=== PATIENT | female | born 1945 | race Caucasian/White ===

== ENCOUNTER 2022-02-18 10:39 | Outpatient (CLI) | payer MEDICARE, SELFPAY ==
--- NOTE | 2022-02-18 11:00 | CRLHL7_ITS ---
For Patients: As a result of the Century Cures Act, medical imaging exams and procedure reports are released immediately into your electronic medical record. You may view this report before your referring provider. If you have questions, please contact your health care provider. Indication: Asymmetry OF ABDOMINAL WALL, ?HERNIA Technique: Noncontrast CT abdomen and pelvis Please note that all CT scans at this facility use dose modulation, iterative reconstruction, and/or weight-based dosing when appropriate to reduce radiation dose to as low as reasonably achievable. Comparison: None Findings: Supraumbilical midline abdominal wall hernia is present containing fat measuring 2.7 cm. Tiny umbilical hernia containing fat measuring 4 millimeters. Right inguinal hernia containing fat measuring 2.3 cm. No bowel involvement. Bladder normal. No pelvic soft tissue mass. Uterus and adnexa appear normal. No bowel obstruction, free air, free fluid or abscess. Mild dependent atelectasis in both lung bases. Fatty infiltration liver. Gallbladder incompletely distended. Normal pancreas, adrenal glands, kidneys and ureters. A small cyst is present within the upper pole of the right kidney. Postoperative changes of fusion L3 through L5 with intact hardware. Impression: Supraumbilical midline abdominal wall hernia containing fat measuring 2.7 cm. Right inguinal hernia contains fat measuring 2.3 cm. Please note that all CT scans at this facility use dose modulation, iterative reconstruction, and/or weight-based dosing when appropriate to reduce radiation dose to as low as reasonably achievable. Dictated by Adi Krishnamurthy MD @ 02/18/2022 1:38:01 PM (Electronically Signed)
== END 2022-02-18 10:40 | disposition home or self-care (01) ==
LOC: CT 10:40
PROVIDERS: PCP Emergency Medicine; Visit Provider Surgery
DX: K43.9 Ventral hernia without obstruction or gangrene (principal); K40.90 Unilateral inguinal hernia, without obstruction or gangrene, not specified as recurrent
CPT/HCPCS: 74176

== ENCOUNTER 2022-03-21 08:16 | Outpatient (CLI) | payer MEDICARE, SELFPAY ==
[2022-03-21 14:00] LABS: Chloride* 105 mmol/L (96-114); Potassium* 4.6 mmol/L (3.6-5.1); Sodium* 142 mmol/L (135-149)
[2022-03-21 14:03] LABS: Blood Urea Nitrogen* 21 mg/dL (7-30); Carbon Dioxide* 30 mmol/L (20-32); Estimated Glomerular Filt Rate 59 ml/min; Glucose* 74 mg/dL (60-115)
[2022-03-21 14:04] LABS: Calcium* 9.8 mg/dL (8.4-10.6)
== END 2022-03-21 08:17 | disposition home or self-care (01) ==
LOC: LKVREF 08:18
PROVIDERS: PCP Emergency Medicine; Visit Provider Emergency Medicine
DX: Z01.818 Encounter for other preprocedural examination (principal)
CPT/HCPCS: 80048

== ENCOUNTER 2022-04-25 13:11 | Outpatient (CLI) | payer MEDICARE, SELFPAY ==
[2022-04-25 14:23] LABS: Chloride* 108 mmol/L (96-114); Potassium* 4.6 mmol/L (3.6-5.1); Sodium* 139 mmol/L (135-149)
[2022-04-25 14:26] LABS: Blood Urea Nitrogen* 20 mg/dL (7-30); Carbon Dioxide* 22 mmol/L (20-32); Estimated Glomerular Filt Rate 59 ml/min; Glucose* 98 mg/dL (60-115)
[2022-04-25 14:27] LABS: Calcium* 9.7 mg/dL (8.4-10.6)
== END 2022-04-25 13:12 | disposition home or self-care (01) ==
PROVIDERS: PCP Emergency Medicine; Visit Provider Emergency Medicine
DX: Z01.818 Encounter for other preprocedural examination (principal)
CPT/HCPCS: 80048

== ENCOUNTER 2022-05-02 09:51 | Day surgery (SDC) | payer MEDICARE, SELFPAY ==
[2022-05-02] VITALS (12 sets, daily range): BP systolic 121–159; BP diastolic 66–82; PULSE 42–68; RESP 11–16; TEMP 36.1–36.7; O2SAT 92–100; BMI 26.7
[2022-05-02] MEDS: LACTATED RINGERS 1000 ML 1,000 ML 100 ML IV (11:35)
[2022-05-02] MEDS: BUPIVACAINE 0.5% 30 ML INJECTION (13:39)
--- NOTE | 2022-05-02 14:48 | P.GSOP_ITS ---
Operative Note Date of procedure: 05/02/22 Type of Procedure: 1. Open epigastric hernia repair with mesh 2. Open right inguinal hernia repair with mesh Procedure Description: After discussing the risks and benefits of the procedure, the patient signed informed consent.? The operative site was marked and the patient was brought to the operating room and placed on the operating table in supine position.? Care was taken to pad the patient's pressure points.?? The patient was then intubated by anesthesia.?? The operative site was then prepped and draped in the usual sterile fashion.? A time-out was then performed. An incision was made superior to the umbilicus in the midline overlying the epigastric hernia. Dissection was taken down to the subcutaneous fat until the hernia was encountered. Dissection was then taken down with cautery to the fascia. The fascia was grasped between 2 Manas clamps. There were 2 small hernias that were next to each other to the right and left of midline in the epigastric region. These were both containing fat. The fat was incarcerated and therefore this was amputated and discarded. The 2 small defects were connected by dividing the thin fascial bridge, creating approximately a 2 cm defect. The preperitoneal fat was then dissected free of the posterior rectus sheath. A piece of small Ventralex mesh was then placed into the preperitoneal space. This was secured in place with 4, 2 0 PDS suture. The tails of the mesh were then removed. The fascia was then closed over the mesh using 0 Nurolon in a vest over pants fashion. The subcutaneous space was closed with 2-0 Vicryl and the dermis closed with 3-0 Vicryl and the subcuticular layer closed with 4 Monocryl in a running fashion. Glue was then applied Attention was then turned to the right inguinal hernia. Local anesthetic was injected into the skin and subcutaneous tissue overlying the inguinal canal. An ilioinguinal nerve block was performed. An oblique incision was made over the external ring. Dissection was carried down into the subcutaneous tissue using cautery until the external oblique fascia was encountered. This was cleared off. The external ring was identified and after injection of more local anesthetic, the external oblique was incised using a knife. This was extended using the Metzenbaum scissors with care to dissect the underlying structures away from the fascia before cutting. Herniated fat was present in the canal. T his was dissected free and found to be coming through the internal ring. This was able to be reduced. The floor of the inguinal canal was examined. The round ligament was not visible and all the landmarks were clear, so the decision was made to place mesh. A piece of polypropylene mesh was obtained and cut to size. This was secured to the pubic tubercle using to 0 Prolene on a double-armed suture. The Prolene was run along the inguinal ligament inferiorly and along the transversalis fascia superiorly, and lateral to the internal ring, completely covering it. The wound was examined for hemostasis which was found to be adequate. The external oblique fascia was then reapproximated with absorbable suture. The wound was then closed in layers including Patricia's fascia and the dermis with absorbable suture. The skin was then closed with a running subcuticular suture. Sterile dressings were applied. Instrument, sponge, and needle counts were correct at the end of the case. The patient was woken and taken to the PACU in stable condition.. ? The patient tolerated the procedure well. Findings: Fat containing epigastric hernia x2 Fat containing right inguinal hernia Anesthesia: RAI Surgeon: Talita Minor MD Estimated blood loss (mL): 5 Condition: stable Disposition: PACU
[2022-05-02] MEDS: LACTATED RINGERS 1000 ML 1,000 ML 35 ML IV (14:56)
--- NOTE | 2022-05-02 15:04 | W.ANESCHARGE ---
Anesthesia Charges Start Date/Time Anesthesia Start Date: 05/02/22 Anesthesia Start Time: 13:15 Stop Date/Time Anesthesia Stop Date: 05/02/22 Anesthesia Stop Time: 15:01 Summary Emergency: No Extremes of Age: Over 70-CPT 12414
--- NOTE | 2022-05-02 15:13 | W.ANESCHARGE ---
Anesthesia Charges Start Date/Time Anesthesia Start Date: 05/02/22 Anesthesia Start Time: 13:15 Stop Date/Time Anesthesia Stop Date: 05/02/22 Anesthesia Stop Time: 15:01 Summary Emergency: No Extremes of Age: Over 71-CPT 62770
--- NOTE | 2022-05-06 08:56 | SUR.PREOP ---
Date completed and time field in preop record entered by jose a regalado per looking at RN involved in preop care and time entered OR. This was done so could close billing section of record.
== END 2022-05-02 16:30 | disposition home or self-care (01) ==
PROVIDERS: PCP Emergency Medicine; Visit Provider Surgery
PROC: (CPT 49570; principal; 2022-05-02 11:45)
DX: K43.9 Ventral hernia without obstruction or gangrene (principal); K40.90 Unilateral inguinal hernia, without obstruction or gangrene, not specified as recurrent
CPT/HCPCS: 49570; 49505; 00750; 99100; C1781; J0330; J1100; J2405; J2704; J2710; J3010; J3490; J7120

== ENCOUNTER 2022-05-04 10:30 | Emergency (ER) | payer MEDICARE, SELFPAY ==
[2022-05-04] VITALS (8 sets, daily range): BP systolic 110–138; BP diastolic 66–74; PULSE 44–56; RESP 16–22; TEMP 36.9; O2SAT 95–99; BMI 24.6
--- NOTE | 2022-05-04 11:03 | ED_ITS ---
HPI - Dizziness General Chief Complaint: Dizziness/Vertigo Stated Complaint: Weak and low blood pressure Time Seen by Provider: 05/04/22 10:49 Source: patient and family Mode of arrival: ambulatory Limitations: no limitations History of Present Illness HPI Narrative: Patient presents with her . She underwent inguinal hernia repair with Dr. Young 2 days ago, surgery was uncomplicated but she was noted to have mild asymptomatic bradycardia during and after the procedure. Patient states this morning at approximately 8:30 a.m. which is 2 hours prior to arrival, she went down for breakfast with her and felt suddenly weak. There was no chest pain, no neurological change, no vertigo-like symptoms. She says that she just felt lightheaded. She has had similar experiences after back surgery in August of 2019 where she was noted to have postoperative low blood pressures and bradycardia. She does not take any beta-yomi type medications. She does have a history of hypertension and is prescribed lisinopril. She did take her lisinopril last night,as she was not advised to hold this. She states that the lightheadedness lasted about 45 minutes. She did take her blood pressure and it was noted to be 68/45. When checked again a couple of minutes later, it was around 90 systolic. They called the nurse triage line and were told to come to the hospital for further evaluation. Blood pressure reached 115 systolic while at home. She is asymptomatic at the time of arrival. She has no history of coronary artery disease. I do review her preop from Dr. Horn. No history of arrhythmias. And the asymptomatic bradycardia is well documented in her outpatient records. No history of heart block or other abnormality. After hernia surgery, she says that she has been taking the [place] as prescribed. She did take this about 20 minutes prior to symptom onset and she does think that this was a contributing factor, as it was also with her prior back surgeries. She has not yet had a bowel movement but is passing flatus. There is no nausea or vomiting. She does feel like she is having bowel gurgling. No fevers. No drainage from her incisions. She does have some right lower quadrant/inguinal area pain which would be expected from her procedure. No dysuria or any feelings of infection. She did not try any interventions at home prior to coming to the emergency department. Past medical history reviewed, notable for hypertension, recent hernia surgery. Notes were extensively reviewed. Home medications of lisinopril, levothyroxine, simvastatin reviewed. No beta-blockers as stated above. She has no known drug allergies. Related Data Home Medications Medication Instructions Recorded Confirmed levothyroxine 25 mcg tablet 25 mcg PO DAILY 02/13/22 05/02/22 lisinopril 5 mg tablet 5 mg PO DAILY 02/13/22 05/02/22 multivitamin (Multiple Vitamins 1 tab PO QAM 02/13/22 05/02/22 tablet) simvastatin 40 mg tablet 40 mg PO .Bedtime 02/13/22 05/02/22 calcium carbonate 600 mg-vitamin 600 cap PO BID 03/21/22 05/02/22 D3 10 mcg (400 unit) capsule perservision vitamin 1 tab PO BID 03/21/22 05/02/22 Previous Rx's Medication Instructions Recorded hydrocodone 5 mg-acetaminophen 325 1 tab PO Q6H PRN Pain #10 tabs 05/02/22 mg tablet Allergies Allergy/AdvReac Type Severity Reaction Status Date / Time No Known Allergies Allergy Verified 05/02/22 10:15 Review of Systems Narrative: Notable for the generalized and cardiovascular symptoms as above. Otherwise denies HEENT, respiratory, GI, urinary, skin, musculoskeletal, neuro logical concerns today. [facility] Medical History Adenomatous polyp of colon (05/16/09) Degeneration of intervertebral disc Dizziness Fusion of lumbar spine (2019) Migraine Pre-op exam Sialoadenitis (06/21/09) Spondylolisthesis Squamous cell carcinoma of skin Surgical History History of appendectomy (05/16/09) History of colonoscopy with polypectomy History of laminectomy History of shoulder surgery (2020) History of strabismus surgery History of unilateral oophorectomy (05/16/09) Family History Aunt Breast cancer, Onset Age: 70 Mother Colorectal cancer, Onset Age: 83 High blood pressure Paternal Grandfather Coronary artery disease Diabetes Brother Malignant neoplasm of ureter Maternal Grandmother Osteoporosis Social History Narrative: health care directive on file- Health Care Directive completed and notarized on 08/16/2019. Reviewed and sent to be scanned on 01/20/2020 does not use illicit drugs nonsmoker occasional alcohol consumption Smoking Status: Never smoker How often do you have a drink containing alcohol: 4 or more times a week Alcohol type: hard liquor How many standard drinks containing alcohol do you have on a typical day: 1 or 2 How often do you have six or more drinks on one occasion: Never AUDIT-C Alcohol total score: 4 Non-prescribed substance use: denies use Caffeine: No Are you using contraception or practicing any form of control: No Exam Const: Vital Signs, click to edit/add: Vital Signs - 24 hr 05/04/22 10:39 05/04/22 11:51 05/04/22 11:49 Temperature 98.4 F Pulse Rate [Right Pulse Oximeter] 52 L 51 L 56 L Respiratory Rate 18 16 16 Blood Pressure [Ri ght Upper Arm] 134/71 138/73 127/69 Pulse Oximetry 97 98 98 Oxygen Delivery Me thod Room Air Room Air Room Air 05/04/22 11:47 05/04/22 11:00 05/04/22 11:30 Temperature Pulse Rate [Right Pulse Oximeter] 46 L 51 L 47 L Respiratory Rate 16 22 16 Blood Pressure [Ri ght Upper Arm] 113/74 130/68 110/70 Pulse Oximetry 96 98 95 Oxygen Delivery Me thod Room Air Room Air Room Air 05/04/22 12:30 05/04/22 12:00 Temperature Pulse Rate [Right Pulse Oximeter] 46 L 44 L Respiratory Rate 18 Blood Pressure [Ri ght Upper Arm] 116/69 116/66 Pulse Oximetry 98 99 Oxygen Delivery Me thod Room Air Room Air Documenting provider has reviewed patient's vital signs: yes Common normals: no apparent distress General appearance: cooperative HENMT: Common normals: normocephalic Head and scalp: normocephalic Mouth: oral and palatal mucosa normal Throat: posterior oropharynx normal Eye: Common normals: conjunctivae normal and no scleral icterus Conjunctiva: conjunctiva(e) normal Other: No pallor, normal visual tracking Neck & C-Spine: Common normals: full ROM and no lymphadenopathy Resp: Common normals: normal respiratory effort and clear to auscultation bilaterally Auscultation: clear to auscultation bilaterally Cardio: Common normals: regular rate, regular rhythm, S1 normal heart sound, S2 normal heart sound, no murmurs and peripheral pulses 2+ throughout Rate: regular rate Rhythm: regular rhythm Heart sounds: S1 normal and S2 normal Peripheral pulses: pulses 2+ throughout GI: Other: Recent surgical incisions consistent with known history. Dermabond covering epigastric and right lower quadrant port sites which have no surrounding redness, no drainage. Bowel sounds are normoactive. Minimally tender under incisions only. Extremity: Common normals: no pedal edema (Normal capillary refill in fingers) Neuro: Speech: speech normal Motor exam: strength 5/5 throughout, no tremor noted and no movement abnormalities noted Psych: Attitude: calm and engaged Activity/motor behavior: appropriate eye contact Memory/cognition: memory grossly intact Insight: insight good Judgement: judgment good Skin: Common normals: no rashes or lesions noted General skin exam: no rashes or lesions noted Course Vital Signs Vital signs: Initial Vital Signs Temperature 98.4 F 05/04/22 10:39 Temperature Source Temporal Artery Scan 05/04/22 10:39 Pulse Rate 52 L 05/04/22 10:39 Respiratory Rate 18 05/04/22 10:39 Blood Pressure 134/71 05/04/22 10:39 Blood Pressure Mean 92 05/04/22 10:39 Blood Pressure Position Sitting 05/04/22 10:39 Pulse Oximetry 97 05/04/22 10:39 Oxygen Delivery Method 05/04/22 10:39 Vital Signs Temperature 98.4 F 05/04/22 10:39 Pulse Rate 52 L 05/04/22 10:39 Respiratory Rate 18 05/04/22 10:39 Blood Pressure 134/71 05/04/22 10:39 Pulse Oximetry 97 05/04/22 10:39 Oxygen Delivery Method 05/04/22 10:39 Temperature 98.4 F 05/04/22 10:39 Pulse Rate 46 L 05/04/22 12:30 Respiratory Rate 18 05/04/22 12:30 Blood Pressure 116/69 05/04/22 12:30 Pulse Oximetry 98 05/04/22 12:30 Oxygen Delivery Method 05/04/22 12:30 MDM - Dizziness MDM Narrative Medical decision making narrative: Chronic bradycardia with episodic hypotension secondary to recent anesthesia, likely mild hypovolemia and TAIWO-inhibitor use. Laboratory studies will be drawn to look for dehydration, electrolyte abnormalities, any chance of anemia from recent surgery also a lactate and investigation for basic infections which I am expecting to be normal. She will receive 1 L of normal saline, cardiac surgeon and EKG. Update 12:45 p.m.: Patient has remained asymptomatic in the emergency department. monitor car operator has not revealed any arrhythmia. EKG showing normal sinus rhythm with no significant ST or T-wave abnormalities, good R-wave progression and normal axis. Per my interpretation. Patient had orthostatic vital signs performed the knees are normal. She has ambulated around the emergency department and remained asymptomatic. Her labs were reviewed with her. She would like to go home. I think this was mostly combination of her lisinopril plus anesthesia plus [place] plus a naturally low heart rate, this was discussed with her. She will hold her lisinopril for a couple more days and follow up with her primary care provider if her symptoms do persist. Medical Records Attestation: I reviewed the patient's medical records. Lab Data Attestation: I reviewed the patient's lab results. Labs: Lab Results 05/04/22 05/04/22 05/04/22 Range/Units 11:20 11:20 11:20 WBC 11.61 H (4.50-11.00) K/uL RBC 3.84 L (4.00-5.20) m/uL Hgb 11.6 L (12.0-16.0) gm/dL Hct 35.6 (33.0-51.0) % MCV 93 (80-100) fL MCH 30 (26-34) pg MCHC 33 (32-36) gm/dL RDW Coeff of Ramiro 13.5 (11.5-15.5) % Plt Count 242 (140-440) K/uL Neut % (Auto) 76.6 H (42.0-72.0) % Lymph % (Auto) 12.7 L (20-44) % [place] % (Auto) 9.5 (0.0-11.0) % Eos % (Auto) 0.7 (0.0-7.0) % Baso % (Auto) 0.3 (0.0-3.0) % Neut # (Auto) 8.90 H (1.7-7.0) K/uL Lymph # (Auto) 1.50 (0.90-2.90) K/uL [place] # (Auto) 1.10 H (0.00-0.90) K/UL Eos # (Auto) 0.10 (0.00-0.50) K/uL Baso # (Auto) 0.00 (0.00-0.30) K/uL Abs Immat Gran (auto) 0.02 (0.00-0.30) K/uL Sodium 139 (135-149) mmol/L Potassium 4.2 (3.6-5.1) mmol/L Chloride 104 (96-114) mmol/L Carbon Dioxide 26 (20-32) mmol/L BUN 21 (7-30) mg/dL Creatinine 1.1 (0.5-1.5) mg/dL Estimated Creat Clear 39.76 Estimated GFR 52 ml/min Glucose 150 H (60-115) mg/dL Lactate 1.6 (0.5-1.9) mmol/L Calcium 9.1 (8.4-10.6) mg/dL Reassuring ECG Data Attestation: I personally reviewed and interpreted this ECG as follows: Discharge Plan Discharge Clinical Impression: Adverse reaction to drug, Postoperative hypotension Patient Disposition: Home w/ Parent or Adult Condition: Improved Instructions: Hypotension (ED) Additional Instructions: Your blood pressure was low from a combination of the pain medication, recent anesthesia and continued use of your lisinopril medication. You will likely still need the pain medication for a few more days and the anesthesia will take time to get out of your system. Because of this, I would like for you to hold your lisinopril tonight and tomorrow night as well. Check your blood pressure Friday, if you are feeling better and your blood pressure is consistently over 130 throughout the day, restart your lisinopril Friday night. Continue to drink lots of fluids and advance your diet as tolerated. If the pain is not severe, consider taking a half of a [place] tablet rather than a full tablet, as you may have less side effects from this. Your likely to have the side effects to most of the other medications in this class as well. It is okay to take Tylenol rather than the [place] if your pain is mild. Remember that [place] and Tylenol both contain acetaminophen and you should attempt to stay under 4000 mg total per 24 hours. Your heart rate is slow, but this is chronic for you and is not necessarily of concern. It does need continued watching by your outpatient primary care provider. I would recommend that you make a followup appointment early next week to recheck your blood pressure, especially if you continue to have any dizziness or lightheadedness. If you have another spell, lie down and rest and drink 2 glasses of water. If your blood pressure stays low or you are still feeling weak, come back to the emergency department Activity Level: Activity as Tolerated Discharge Diet: Regular Prescriptions: No Action multivitamin [Multiple Vitamins] Tablet 1 tab PO QAM lisinopril 5 mg tablet 5 mg PO DAILY levothyroxine 25 mcg tablet 25 mcg PO DAILY simvastatin 40 mg tablet 40 mg PO .Bedtime perservision vitamin 1 tab PO BID calcium carbonate-vitamin D3 600 mg-10 mcg (400 unit) capsule 600 cap PO BID hydrocodone-acetaminophen 5-325 mg Tablet 1 tab PO Q6H PRN (Reason: Pain) Qty: 10 0RF Follow Up/Referrals: Vidhi Horn MD [Primary Care Provider] - Stand Alone Forms: [employer] Info Instructions
--- OUTSIDE RECORDS SUMMARY | 2022-05-04 11:11 | XMS_ITS ---
:1945 External Reference #[id number] Author Care Team Providers Name Role Phone Dillon Diaz Primary Care Provider Unavailable Allergies None recorded. Medications Name Status Start Date Stop Date ? ? cephalexin 500 mg capsule Active ? Not av ailable levothyroxine 25 mcg tablet Active ? Not available lisinopril 5 mg tablet Active ? Not avail able niacinamide 500 mg tablet Active ? Not av ailable TAKE TWO TABLETS BY MOUTH DAILY oxycodone 5 mg tablet Active ? Not availa ble simvastatin 40 mg tablet Active ? Not joshua ilable sulfamethoxazole 400 mg-trimethoprim 80 mg tablet Active ? Not available Problems None recorded. Procedures None recorded. Results Lab Results None recorded. Past Encounters None recorded. Social History None recorded. Vaccine List None recorded. Plan of Care Reminders Provider Appointments None recorded. ? ? Lab None recorded. ? ? Referral None recorded. ? ? Procedures None recorded. ? ? Surgeries None recorded. ? ? Imaging None recorded. ? ? Vitals None recorded.
--- OUTSIDE RECORDS SUMMARY | 2022-05-04 11:11 | XMS_ITS | Clinical Summary ---
:1945 Author Organization [facility] [place] [address] Care Team Providers Name Role Phone Franci Dean Primary Care Provider Allergies No known active allergies Medications Medication Sig Dispensed Refills Start Date End Date Status SIMVASTATIN ORAL Take by mouth. 0 Active MULTIVITAMIN/IRON/FOL Take by mouth. 0 Active IC ACID (MULTI-SAGE ORAL) DOCOSAHEXANOIC Take by mouth. 0 Active ACID/EPA (FISH OIL ORAL) CALCIUM ORAL Take by mouth. 0 Ac tive GLUCOSAM SUL Take by mouth. 0 Ac tive NA/CHONDR CANAS A NA (GLUCOSAMINE & CHONDROIT SUL.NA ORAL) VIT A/VIT C/VIT Take by mouth 2 0 Active E/ZINC/COPPER times daily. (PRESERVISION AREDS ORAL) HYDROcodone-acetamino Take 1-2 tablets by 20 tablet 0 01/08/20 12 Active phen, 5-500 mg, mouth every 4 hours (VICODIN) Tab tablet if needed for Pain. Max acetaminophen dose: 4000mg in 24 hrs. Active Problems Problem Noted Date Esotropia 01/08/2012 Social History Tobacco Use Types Packs/Day Years Used Date Never Smoker Alcohol Use Standard Drinks/Week Comments Yes 1.7 (1 standard drink = 0.6 oz pure alco hol) Sex Assigned at Date Recorded Not on file Obstetrics History Last Filed Vital Signs Vital Sign Reading Time Taken Comments Blood Pressure 149/76 01/08/2012 3:26 PM CDT Pulse 46 01/08/2012 3:26 PM CDT Temperature 36.7 ??C (98 ??F) 01/08/2012 3:00 PM CDT Respiratory Rate 16 01/08/2012 3:26 PM CDT Oxygen Saturation 100% 01/08/2012 3:26 PM CDT Inhaled Oxygen Concentration - - Weight 70.3 kg (155 lb) 01/03/2012 8:26 AM CDT Height 165.1 cm (5' 5) 01/03/2012 8:26 AM CDT Body Mass Index 25.79 01/03/2012 8:26 AM CDT Plan of Treatment Health Maintenance Due Date Last Done Comments COVID-19 vaccine series (#1) 06/09/1946 Tdap 1957 Depression screening for age 12+ 1958 BMI (ht and wt on same day) for age 18+ 1964 Hepatitis C screening for age 18-79 1964 Tetanus booster 1966 Colonoscopy through age 75 12/09/1991 Lipids for age 45-75 12/09/1991 Mammogram for age 45-75 12/09/1991 Zoster (shingles) series for age 50+ (1 of 2) 1996 DEXA/DXA scan for age 65+ 12/09/2011 Pneumococcal series for age 65+ (1 - PCV) 12/09/2011 Influenza for age 65+ 04/11/2022 Results Not on filefrom Last 3 Months Insurance Payer Benefit Plan / Subscriber ID Effective Dates Phone Addre ss Type Group MEDICARE PART A MEDICARE PART A 2011-Present ATTN: CLAIMS - HB USE ONLY HB ONLY [address] [place] [address] MEDICARE PART B MEDICARE PART B [id number] 2011-Present ATTN: CLAIMS - HB USE ONLY HB ONLY [address] [facility] [place] [address] [employer] [place] BLUE [employer]OSS [id number] 2011-Present [address] [address] [place], [place] ONLY [id number] [employer] BLUE CROSS [id number] 2011-Present [address] [address] [address] [place] [address] [place], [place] [id number] Advance Directives Latest Code Status on File Code Status Date Activated Date Inactivated Comments Full Code 01/08/2012 1:56 PM 01/08/2012 5:45 PM Care Teams Transportation Engineering Technician Relationship Specialty Start Date End Date Franci Dean PCP - General Family Practice 07/16/16
[2022-05-04] MEDS: 0.9 % SODIUM CHLORIDE 1000 ml 1,000 ML IV (11:23)
[2022-05-04 11:31] LABS: Lactate* 1.6 mmol/L (0.5-1.9)
[2022-05-04 11:33] LABS: Basophils Percent Auto 0.3 % (0.0-3.0); Eosinophils Percent Auto 0.7 % (0.0-7.0); Hematocrit 35.6 % (33.0-51.0); Hemoglobin* 11.6 gm/dL (12.0-16.0); Immature Granulocytes Abs Auto 0.02 K/uL (0.00-0.30); Lymphocytes Percent Auto 12.7 % (20-44); Mean Corpuscular HGB Conc 33 gm/dL (32-36); Mean Corpuscular Hemoglobin 30 pg (26-34); Mean Corpuscular Volume 93 fL (80-100); Monocytes Percent Auto 9.5 % (0.0-11.0); Neutrophils Percent Auto 76.6 % (42.0-72.0); Platelet Count* 242 K/uL (140-440); RDW Coefficient of Variation % 13.5 % (11.5-15.5); Red Blood Count 3.84 m/uL (4.00-5.20); White Blood Count* 11.61 K/uL (4.50-11.00)
[2022-05-04 11:34] LABS: Slide Review Reflex No
[2022-05-04 11:48] LABS: Chloride* 104 mmol/L (96-114)
[2022-05-04 11:49] LABS: Potassium* 4.2 mmol/L (3.6-5.1); Sodium* 139 mmol/L (135-149)
[2022-05-04 11:51] LABS: Creatinine* 1.1 mg/dL (0.5-1.5); Est. Creatinine Clearance* 39.76; Estimated Glomerular Filt Rate 52 ml/min
[2022-05-04 11:52] LABS: Blood Urea Nitrogen* 21 mg/dL (7-30); Calcium* 9.1 mg/dL (8.4-10.6); Carbon Dioxide* 26 mmol/L (20-32); Glucose* 150 mg/dL (60-115)
--- NOTE | 2022-05-04 12:44 | ED.NURSE ---
was able to ambulate to drs' office and back. did well. does report that she feels better than when she came in. dr arthur in to explain findings and plan. .
== END 2022-05-04 13:00 | disposition home or self-care (01) ==
PROVIDERS: Emergency Provider Family Medicine; PCP Emergency Medicine
DX: I95.81 Postprocedural hypotension (principal); R53.1 Weakness
CPT/HCPCS: 36415; 80048; 81003; 83605; 84484; 85025; 93005; 99283; 99284; J7030

== ENCOUNTER 2022-09-11 09:05 | Outpatient (CLI) | payer MEDICARE, SELFPAY ==
[2022-09-11 13:03] LABS: Chloride* 107 mmol/L (96-114); Sodium* 142 mmol/L (135-149)
[2022-09-11 13:05] LABS: Cholesterol* 147 mg/dL (90-199)
[2022-09-11 13:06] LABS: Blood Urea Nitrogen* 20 mg/dL (7-30); Calcium* 9.7 mg/dL (8.4-10.6); Carbon Dioxide* 26 mmol/L (20-32); Estimated Glomerular Filt Rate 59 ml/min; Glucose* 88 mg/dL (60-115); HDL Cholesterol* 51 mg/dL (>=50); LDL Cholesterol Calculated 71 mg/dL (<100); Potassium* 4.1 mmol/L (3.6-5.1); Triglycerides* 126 mg/dL (40-149)
== END 2022-09-11 09:06 | disposition home or self-care (01) ==
PROVIDERS: PCP Emergency Medicine; Visit Provider Emergency Medicine
DX: E03.9 Hypothyroidism, unspecified (principal); E78.5 Hyperlipidemia, unspecified; I10 Essential (primary) hypertension
CPT/HCPCS: 80048; 80061; 84443

== ENCOUNTER 2022-11-08 09:28 | Outpatient (CLI) | payer MEDICARE, SELFPAY ==
--- NOTE | 2022-11-08 09:45 | CRLHL7_ITS ---
For Patients: As a result of the Century Cures Act, medical imaging exams and procedure reports are released immediately into your electronic medical record. You may view this report before your referring provider. If you have questions, please contact your health care provider. BILATERAL SCREENING MAMMOGRAM WITH COMPUTER-AIDED DETECTION AND TOMOSYNTHESIS TECHNIQUE: CC and MLO views were obtained. These mammographic images have been obtained using full-field digital technique. These mammographic images were interpreted with the benefit of computer-aided detection. Breast Tomosynthesis was used in this interpretation. COMPARISON FILM: 09/28/21, 08/28/20, 07/31/19. FINDINGS: There are scattered areas of fibroglandular density IMPRESSION: There is no radiographic evidence for malignancy. ASSESSMENT: BI-RADS Category 1: Negative RECOMMENDATION: Routine screening mammogram in 1 year. A lay language report of this examination will be provided to the patient. David Rordíguez M.D. Diagnostic/Nuclear Medicine Radiologist [email or web address] KALA/Dictated by: David Rodríguez MD @ 11/08/2022 10:15:00 AM (Electronically Signed)
== END 2022-11-08 09:29 | disposition home or self-care (01) ==
PROVIDERS: PCP Emergency Medicine; Visit Provider Emergency Medicine
DX: Z12.31 Encounter for screening mammogram for malignant neoplasm of breast (principal)
CPT/HCPCS: 77063; 77067

== ENCOUNTER 2023-01-31 11:08 | Outpatient (CLI) | payer MEDICARE, SELFPAY ==
--- OUTSIDE RECORDS SUMMARY | 2023-01-31 11:10 | XMS_ITS | Continuity of Care Document ---
Author Name Unknown Organization [facility] Address [address] [place] [address] Phone Care Team Providers Care Supply Specialist Name Role Phone Rehan Evans MD Unavailable Unavailable Allergies, Adverse Reactions, Alerts Substance Reaction Status Criticality No Known Allergies Active No Inform ation Medications Medication Instructions Dosage Effective Dates (start - stop) Status Comments No Drug Therapy Prescribed Procedures Procedure Date Office/Outpatient Visit,[facility] 2014 Advance Directives Directive Yes / No Effective Date File Name No Information Encounters Encounter Description Practice Location Reason(s) For Visit Diagnoses Date Provider Providers Copied on Encounter Office/Outpa tient Visit,New, [facility], [address], [place], [place], [id number] , [place] tel:[phone] [facility] OVERWEIGHTCervical spondylosisSpinal stenosis of cervical region 5 Cristina Van. [facility], [address] [place] [address], [facility] [address], [place], [place], [id number] , [place]. tel:[phone] Referring Provider: Franci Dean [place] [address] [place], [address]. tel:[phone] Family History Family Member Type Diagnosis Age At Onset No Information Payers Payer name Insurance type Covered democrat ID [id number] Medicare [facility] [id number] Social History Type Description Quantity Date Captured Comments Alcohol Use Details Unknown Caffeine Use Details Unknown Tobacco Use Status Never smoked tobacco 2014 Smoking Status Never smoker Non-Smoking Tobacco Use Details : No Details Available : No Details Available Sex Female Vital Signs Date / Time: Height Weight BMI Pulse Rate Blood Pressure Temperature Respiratory Rate Body Surface Area Head Circumference Head Circ. Percentile Wt./[place]. Percentile BMI percentile Pulse Ox Inhaled Ox 3:28 PM 65.00 in 73.482 kg (162.00 lbs) 26.9 6 kg/m eter (2) 70 /min 139/73 mm[Hg] Chief Complaint And Reason For Visit No Information Reason For Referral Reason For Referral No Information Plan Of Treatment Date Type Action Status No Information History Of Present Illness Encounter Date Complaint History Of Prese nt Illness No Information Functional Status Date Functional Assessmen t No Information Medications Administered Medication Instructions Dosage Effective Dates (start - stop) Status Comments No Drug Therapy Prescribed Instructions Date Instruction Additional Infor yina [facility] Assessments Type Assessment Date assessment OVERWEIGHT Patient Care Teams Name Effective Dates (start - stop) Status Members No Information
== END 2023-01-31 11:09 | disposition home or self-care (01) ==
LOC: OP CLINIC 11:08
PROVIDERS: PCP Emergency Medicine; Visit Provider Internal Medicine
DX: Z86.010 Personal history of colon polyps (principal); K63.5 Polyp of colon; K64.8 Other hemorrhoids
CPT/HCPCS: 45380; 45385; 88305; J2250; J3010

== ENCOUNTER 2023-06-25 10:15 | Outpatient (RCR) | payer MEDICARE, SELFPAY | END 2023-07-31 12:08 | disposition home or self-care (01) | PROVIDERS: PCP Emergency Medicine; Visit Provider Physician Assistant Surgical | DX: G25.81 Restless legs syndrome (principal); R53.1 Weakness; R52 Pain, unspecified; Z51.89 Encounter for other specified aftercare | CPT/HCPCS: 97032; 97110; 97112; 97140; 97162 ==

== ENCOUNTER 2023-10-06 08:57 | Outpatient (CLI) | payer MEDICARE, SELFPAY | END 2023-10-06 08:58 | disposition home or self-care (01) | LOC: NFLDREF 10-16 10:12 | PROVIDERS: PCP Emergency Medicine; Referring Provider Emergency Medicine; Visit Provider Emergency Medicine | DX: M85.9 Disorder of bone density and structure, unspecified (principal); E03.9 Hypothyroidism, unspecified; E78.5 Hyperlipidemia, unspecified; I10 Essential (primary) hypertension | CPT/HCPCS: 80053; 80061; 82306; 84443 ==

== ENCOUNTER 2023-11-20 14:41 | Outpatient (CLI) | payer MEDICARE, SELFPAY ==
--- OUTSIDE RECORDS SUMMARY | 2023-11-20 14:44 | XMS_ITS | Data Portability ---
Author Name Unknown Address [address] [place] [address] Phone [phone] Organization [facility], Main Office Address [address] [place] [address] Assessment Encounter Date Assessment Date Assessment LastModified by Organization Details LastModified Time 12/19/2018 12/19/2018 1. 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 2. Basal carcinoma biopsy-proven left occipital scalp here for Mohs surgery. We reviewed the risks of surgery pain, discomfort, scarring, infection, tension headache. Time healing. Potential alopecia at the scar stretch. Potential need for revision. Mohs case number [id number] Location: Left parietal scalp. Stage I: Anesthetized 1% lidocaine with epinephrine. Cleansed with Betadine then alcohol. Curette debulking performed. 2 mm circumferential margins taken to the subcutis. One section. No residual squamous cell carcinoma identified. Closure: Intermediate closure with redundancy superior and inferior taken. Undermined all directions 3 cm. Hemostasis obtained with electrocautery. Closed with 4-0 Monocryl. And then mary jo. For final lesion size of 2.2 cm and final intermediate closure length of 7 cm Mohs case number [id number] Location left occipital scalp laterally. Stage I: Anesthetized 1% lidocaine with epinephrine cleansed with alcohol and Betadine. Curette debulking performed. 2 mm margins taken circumferentially. Divided into 2 sections. Revealing no residual basal carcinoma. Final lesion size 2.5 cm. Redundancies removed superior and inferior. Undermined all directions 2 to 3 cm. Hemostasis obtained with electrocautery. Closed with 3-0 Monocryl and mary jo. Final closure length 6 cm. Combined closure length for both lesions would be 13 cm. Follow-up in weeks in [place]. Wound care instructions given. Plan to start niacinamide 500 mg 2 tablets once daily. Discussed published article. Hot flashes. Potential reduced number of basal cells and squamous cells in the future [id number] Not available 12/20/2018 13:26:14 Plan of Treatment Reminders Order Date Submit Date Provider Last Modified By Organization Details Last Modified Time Details Appointments None recorded. Lab None recorded. Referral None recorded. Procedures None recorded. Surgeries None recorded. Imaging None recorded. Medication Orders niacinamid e 500 mg tablet [address] [id number], [address], [place], [address], 9 14:31:41 Patient TargetsNo targets recorded. Patient InstructionsNo instructions recorded. Reason for Referral None Reported. Medical Equipment None Reported. Medications Name Sig Start Date Stop Date Status Note LastModified by Organization Details LastModified Time sulfamethoxazol e 400 mg-trimethoprim 80 mg tablet active Not Available Not Available Not Available simvastatin 40 mg tablet active Not Available Not Available No t Available levothyroxine 25 mcg tablet active Not Available Not Availabl e Not Available cephalexin 500 mg capsule active Not Available Not Available N ot Available niacinamide 500 mg tablet TAKE TWO TABLETS BY MOUTH DAILY 2020 active Not Available Not Available Not Avai lable lisinopril 5 mg tablet active Not Available Not Available Not Available oxycodone 5 mg tablet active Not Available Not Available Not Available Vitals None Recorded Social History None recorded. Functional Status None recorded. Mental Status None recorded. Family History Nothing Reported. Medical History No medical history recorded. Gynecological HistoryNo gynecological history recorded. Obstetrics History GPAL:G 0 P 0 0 0 0 Past Encounters Encounter ID Performer Location Encounter Start Date Encounter Closed Date Diagnosis/Indication Diagnosis SNOMED-CT Code [id number] Dillon Diaz MD Main Office [address] [place] [address] 12/19/2018 09:56:00 12/20/2018 14:32:01 Basal cell carcinoma of scalp [id number] Squamous c ell carcinoma of scalp [id number] History of malignant neoplasm of skin [id number] Health Concerns Section Related Observation LastModified by Organization Detai ls LastModified Time None Recorded Concern Status LastModified by Organization Details LastModified Time None Recorded Advance Directives Directive None Recorded Payers Encounter Date Sequence Insurance Name Policy Number Policy Zee Covered Member ID Zee Member ID Guarantor Name 12/19/2018 1 [facility] [id number] Avelina Mccollum Hermiloitzjada [id number] Avelina Mike 12/19/2018 2 [place] [id number] [facility] Avelina Mccollum Chasenaman [id number] Avelina Mike Notes Date Note Type Note Provider Name and Address Organization Details Recorded Time 12/19/2018 text/html HPI Notes: Presents today for Mohs surgery biopsy-proven squamous cell carcinoma left parietal scalp and basal carcinoma left occipital scalp. She is accompanied by her . She notes she is in good health. No fevers noticed chills no swollen glands no signs of acute illness. Past medical history is known from our visit department. Includes a prior basal cell carcinoma on the crown of the scalp Dillon Diaz MD [address] [place] [address], [place], [address], [facility] 12/20/2018 14:31:52 OBGyn Episode No OBEpisode recorded.
--- OUTSIDE RECORDS SUMMARY | 2023-11-20 14:44 | XMS_ITS | Referral Summary ---
Author Name Unknown Organization [facility] Address [address] [facility] [place] [address] Care Team Providers Care Marine Resource Economist Name Role Phone Raj Coombs MD Unavailable [phone] Vidhi Horn MD Primary Care Provider [phone] Allergies Active Allergy Reactions Criticality Noted Date Comments No Known Drug Allergy 03/08/2003 Medications Medication Sig Dispensed Refills Start Date End Date Status levothyroxine (SYNTHROID/LEVOTHROID ) 25 MCG tablet Take 25 mcg by mouth daily Active lisinopril (ZESTRIL) 5 MG tablet Take 5 mg by mouth At Bedtime Active simvastatin (ZOCOR) 40 MG tablet Take 40 mg by mouth At Bedtime Active multivitamin w/minerals (MULTI-VITAMIN) tablet Take 1 tablet by mouth daily Active polyethylene glycol-propylene glycol (SYSTANE ULTRA) 0.4-0.3 % SOLN ophthalmic solution Place 1 drop into both eyes every hour as needed for dry eyes Active calcium carbonate-vitamin D (CALTRATE) 600-10 MG-MCG per tablet Take 1 tablet by mouth 2 times daily Active Multiple Vitamins-Minerals (PRESERVISION AREDS 2 PO) Take 1 capsule by mouth 2 times daily Active acetaminophen (TYLENOL) 325 MG tabletIndications:Spi nal stenosis of lumbar region with neurogenic claudication Take 3 tablets (975 mg) by mouth every 8 hours 100 tablet 04/11/2023 Active gabapentin (NEURONTIN) 100 MG capsuleIndications:Sp inal stenosis of lumbar region with neurogenic claudication Take 1 capsule (100 mg) by mouth At Bedtime 30 capsule 04/11/2023 Active hydrOXYzine (ATARAX) 10 MG tabletIndications:Spi nal stenosis of lumbar region with neurogenic claudication Take 1 tablet (10 mg) by mouth every 6 hours as needed for other (adjuvant pain) 30 tablet 04/11/2023 Active oxyCODONE (ROXICODONE) 5 MG tabletIndications:Spi nal stenosis of lumbar region with neurogenic claudication Take 1 tablet (5 mg) by mouth every 4 hours as needed for moderate pain 32 tablet 04/11/2023 Active senna-docusate (SENOKOT-S/PERICOLACE ) 8.6-50 MG tabletIndications:Spi nal stenosis of lumbar region with neurogenic claudication Take 1 tablet by mouth 2 times daily 60 tablet 04/11/2023 Active Active Problems Problem Noted Date Diagnosed Date Lumbar spinal stenosis 04/09/2023 Symptomatic menopausal or female climacteric sta carrie 03/08/2003 Immunizations Name Administration Dates Next Due Flu, Unspecified 05/03/2019 Social History Tobacco Use Types Packs/Day Years Used Date Smoking Tobacco: Never Smokeless Tobacco: Never Alcohol Use Standard Drinks/Week Comments Yes 1.7 (1 standard drink = 0.6 oz p ure alcohol) Alcoholic Drinks/day: social Adolescent Education Answer Date Record ed Getting School Help Needed Not on file 05/05 Sex and Gender Information Value Date Recorded Sex Assigned at Not on file Gender Identity Not on file Sexual Orientation Not on file Last Filed Vital Signs Vital Sign Reading Time Taken Comments Blood Pressure 144/83 04/11/2023 8:18 AM CDT Pulse 60 04/11/2023 8:18 AM CDT Temperature 36.3 ??C (97.3 ??F) 04/11/2023 8:18 AM CD T Respiratory Rate 16 04/11/2023 12:3 5 AM CDT Oxygen Saturation 94% 04/11/2023 12: 35 AM CDT Inhaled Oxygen Concentration - - Weight 66.6 kg (146 lb 12.8 oz) 04/09/2023 6:13 AM CDT Height 162.6 cm (5' 4) 04/09/2023 6:13 AM CDT Body Mass Index 25.2 04/09/2023 6:13 AM CDT Plan of Treatment Not on file Medical Devices Implanted Type Area Holistic Specialist Device Identifier Shelf Expiration Date Model / Serial / Lot Imp Dago Medt Tsrh Prebent 07.0cm [id number] Implanted:Qty : 2 on 08/16/2019 Metallic Hardware/An chor N/A: Spine Lumbar [employer] [id number] / / NA Imp Scr Medt Tsrh 3dx Og Thin 6.5x40mm Ti [id number] Implanted:Qty : 1 on 08/16/2019 Metallic Hardware/An chor N/A: Spine Lumbar [employer] [id number] / / NA Imp Spacer Medt Elevate X-Rhiannon 28x8mm Expandable Med [id number] Implanted:Qty : 1 on 08/16/2019 Metallic Hardware/An chor N/A: Spine Lumbar [employer] 06/21/2027 [id number] / / [id number] Imp Spacer Medt Elevate X-Rhiannon 28x8mm Expandable Med [id number] Implanted:Qty : 1 on 08/16/2019 Metallic Hardware/An chor N/A: Spine Lumbar [employer] 01/22/2026 [id number] / / [id number] Imp Spi Interbody Medt Catalyft Pl Long 9mm [id number] - [id number] Implanted:Qty : 1 on 04/09/2023 by Lukasz Evans MD at [facility] Metallic Hardware/An chor N/A: Spine Lumbar [employer] 02/27/2031 [id number] / / [id number] Imp Connector Medt Tsrh 3dx Small [id number] Implanted:Qty : 6 on 08/16/2019 Explanted:Qty : 2 on 04/09/2023 by Lukasz Evans MD at [facility] Metallic Hardware/An chor N/A: Spine Lumbar [employer] [id number] / / NA Imp Scr Medt Tsrh 3dx Og Thin 6.5x45mm Ti [id number] Implanted:Qty : 5 on 08/16/2019 Explanted:Qty : 2 on 04/09/2023 by Lukasz Evans MD at [facility] Metallic Hardware/An chor N/A: Spine Lumbar [employer] [id number] / / NA Imp Scr Medt Tsrh 3dx Og Thin 6.5x50mm Ti [id number] - [id number] Implanted:Qty : 2 on 04/09/2023 by Lukasz Evans MD at [facility] Metallic Hardware/An chor N/A: Spine Lumbar [employer]-DANEK [id number] / / Imp Scr Medt Tsrh 3dx Og Thin 6.5x45mm Ti [id number] - [id number] Implanted:Qty : 2 on 04/09/2023 by Lukasz Evans MD at [facility] Metallic Hardware/An chor N/A: Spine Lumbar [employer] [id number] / / Imp Scr Set Medt Tsrh 3dx Flush Break [id number] - [id number] Implanted:Qty : 4 on 04/09/2023 by Lukasz Evans MD at [facility] Metallic Hardware/An chor N/A: Spine Lumbar [employer] [id number] / / Imp Connector Medt Tsrh 3dx Small [id number] - [id number] Implanted:Qty : 4 on 04/09/2023 by Lukasz Evans MD at [facility] Metallic Hardware/An chor N/A: Spine Lumbar [employer] [id number] / / Dago Precut 4.5cmx5.5mm - [id number] Implanted:Qty : 2 on 04/09/2023 by Lukasz Evans MD at [facility] Metallic Hardware/An chor N/A: Spine Lumbar [employer] [id number] / / Imp Scr Set Medt Tsrh 3dx Flush Break [id number] Implanted:Qty : 6 on 08/16/2019 Explanted:Qty : 2 on 04/09/2023 by Lukasz Evans MD at [facility] Metallic Hardware/An chor N/A: Spine Lumbar [employer] [id number] / / NA Procedures Procedure Name Priority Date/Time Associated Diagnosis Comments GLUCOSE BY METER Routine 04/09/2023 6:52 AM CDT DX BONE DENSITY Routine 10/05/2012 Screening for osteoporosis MA SCREENING DIGITAL BILATERAL Routine 06/19/2012 2:19 PM [facility] COLONOSCOPY Routine 11/08/2009 8:55 AM CDT CL AFF A.M.A. LIPID PANEL Routine 03/08/2003 10:21 AM CDT Mixed Hyperlipidemia from Last 3 Months or Most Recently Relevant to Health Maintenance Results * Glucose by meter (04/09/2023 6:52 AM CDT) [facility] GLUCOSE BY METER POCT 84 70 - 99 mg/dL 04/09/2023 7:[address] [facility] POCT RESULTS Blood, venous BLOOD SPECIMEN / Unknown 04/09/2023 6:52 AM CDT 04/09/2023 7:01 AM CDT Lukasz Evans MD [facility] POCT Performing Organization Address [facility]/State/[facility] Co de Phone Number [facility] POCT RESULTS [address] [place] [address] * DX Hip/Pelvis/Spine (10/05/2012) Anatomical Region Laterality Modality Dexa Other Impressions 10/05/2012 BONE DENSITOMETRY [facility] October 05, 2012 PATIENT: ??Avelina Mckeon CHART: [id number] : ??1945 AGE: ??66 year old SEX: ??female REFERRING PHYSICIAN: ??Raj Coombs M.D. [facility] PROCEDURE: ??Bone density scanning was performed using DEXA technology performed on a [employer] Scanner. ??Reporting is completed in the form of a T-score. ??The T-score represents the standard deviation from peak bone mass based on a young healthy adult. Medical Supervisor performing scan: ??Elodia Horvath REFERENCE T-SCORES: ? Normal ?-1.0 and greater ? Osteopenia ?Less than -1.0 and greater than -2.5 Osteoporosis ?? -2.5 and less ? INDICATIONS: ??Post-menopausal, Family history of osteoporosis, Fracture of ulna age 57 CURRENT TREATMENT: ??Calcium with Vitamin D FINDINGS: ?Lumbar Spine L1-L2: ??T-score 0.4, marked degenerative changes present at L3,4, so only L1,2 are evaluated. ?Left Femoral Neck: ??T-score -1.0 ?Right Femoral Neck: ??T-score -1.0 ? IMPRESSION: Normal bone mineral density., Degenerative changes of the lumbar spine which may falsely elevate results. Comparison is made to previous study dated 01/14/00. Comparisons from different scanners that have not been cross calibrated, are not necessarily valid. Such a comparison has been performed here; one should interpret with caution. ?? There has been probably no significant change in bone density of the lumbar spine. There has been probable significant decrease in bone density of the hip(s). Recommendations include ensuring adequate Calcium (1200 mg/d) and Vitamin D (at least 800 IU/d). The current NOF Guidelines recommend treatment for patients with prior hip or vertebral fracture, T-score -2.5 or below, or 10 year risk of any major osteoporotic fracture >20% or 10 year risk of hip fracture >3%, as calculated using the FRAX calculator (www.shef.ac.uk/FRAX or you can google FRAX). ?? This patient's risks based on available information, with the use of FRAX, are 8.0 % for major osteoporotic fracture and 0.6 % for hip fracture. Based on these guidelines, treatment (in addition to calcium and vitamin D) is not recommended for this patient, after ruling out other causes of osteoporosis. This is meant as an aid to clinical decision making; one must still use clinical judgement. Follow up can be considered in 3 years. For patients eligible for Medicare, routine testing is allowed once every two years. The testing frequency can be increased to one year for patients who have rapidly progressing disease, those who are receiving or discontinuing medical therapy to restore bone mass, or have additional risk factors. Eileen Fox M.D. Electronically signed Eileen AGARWAL DEXA ORDERABLES * Mammo Screening digital (bilat) (06/19/2012 2:19 PM [facility]) Anatomical Region Laterality Modality Breast Bilateral Other 06/19/2012 2:19 PM [facility] Impressions 06/19/2012 3:10 PM [facility] SCREENING MAMMOGRAM, BILATERAL, DIGITAL w/CAD - 06/19/2012 2:19 PM BREAST SYMPTOMS: No current breast complaints. COMPARISON: ??11/07/2009, 06/10/2007 PARENCHYMAL PATTERN: Scattered fibroglandular densities. COMMENTS: No findings of suspicion for malignancy. IMPRESSION: BI-RADS 1, NEGATIVE RECOMMENDATION: Annual screening mammography. Raj Coombs MD IMG MAMMOGRAPHY ORD ERABLES * COLONOSCOPY (11/08/2009 8:55 AM CDT) Pathologist [facility] COLONOSCOPY [facility] Patient Name: Avelina Mckeon ?Gender: F ? Procedure Date: 11/08/2009 8:55 AM ? Date of : 1945 ?Age: 63 ? Admit Type: Outpatient ? Attending MD: Pavan Martinez MD ? Procedure: ? Colonoscopy Indications: ? Personal history of colonic polyps Providers: ? Pavan Martinez MD Referring MD: ?Mj Alberts MD Medicines: ? Fentanyl 100 micrograms IV, Midazolam 1.5 mg IV, ? Atropine 0.6 mg IV Complications: ? No immediate complications Procedure: ? - Prior to the procedure, a History and Physical was ? performed, and patient medication allergies were ? reviewed. The patient is competent. The risks and ? benefits of the procedure and the sedation options and ? risks were discussed with the patient. All questions ? were answered and informed consent was obtained. Patient ? identification and proposed procedure were verified by ? the physician in the procedure room. Mental Status ? Examination: alert and oriented. Airway Examination: ? normal oropharyngeal airway and neck mobility. ? Respiratory Examination: clear to auscultation. CV ? Examination: normal. ASA Grade Assessment: I - A normal, ? healthy patient. After reviewing the risks and benefits, ? the patient was deemed in satisfactory condition to ? undergo the procedure. The anesthesia plan was to use ? moderate sedation / analgesia (conscious sedation). ? Immediately prior to administration of medications, the ? patient was re-assessed for adequacy to receive ? sedatives. The heart rate, respiratory rate, oxygen ? saturations, blood pressure, adequacy of pulmonary ? ventilation, and response to care were monitored ? throughout the procedure. The physical status of the ? patient was re-assessed after the procedure. ? After obtaining informed consent, the colonoscope was ? passed under direct vision. Throughout the procedure, ? the patient's blood pressure, pulse, and oxygen ? saturations were monitored continuously. The [id number] ? #[id number] was introduced through the anus and advanced to ? the ileum. The colonoscopy was performed without ? difficulty. The patient tolerated the procedure well. ? The quality of the prep was excellent. ? Findings: ? The digital rectal exam was normal. A sessile polyp was found in the ? transverse colon. The polyp was 2 mm in size. This was biopsied with a ? hot forceps for histology. A sessile polyp was found in the sigmoid ? colon. The polyp was 2 mm in size. This was biopsied with a hot forceps ? for histology. The rectum, descending colon, splenic flexure, hepatic ? flexure, ascending colon, cecum, ileocecal valve and ileum appeared ? normal. The retroflexed view of the anal verge was normal and showed no ? anal or rectal abnormalities. The terminal ileum appeared normal. ? Impression: ?- A 2 mm polyp in the transverse colon. Tissue was ? removed. ? - A 2 mm polyp in the sigmoid colon. Tissue was removed. ? - The rectum, descending colon, splenic flexure, hepatic ? flexure, ascending colon, cecum, ileocecal valve and ? terminal ileum are normal. ? - The terminal ileum is normal. Recommendation: ?- Discharge patient to home (ambulatory). ? - Patient should telephone endoscopist in 1 week. ? - If polyp is adenomatous repeat colonoscopy in 3 years. ? If polyp is hyperplastic repeat colonoscopy in 4 years. ? - Return to primary care physician PRN. ? Vicki Martinez M.D Pavan Martinez MD Signed Date: 11/08/2009 9:52 AM Number of Addenda: 0 I was physically present for the entire viewing portion of the exam. Note initiated on 11/08/2009 8:54 AM RADIOLOGY RESULTS 11/08/2009 8:55 AM CDT Mj Alberts MD PROCEDURES RADIOLOGY RESULTS * (ABNORMAL) A.M.A. LIPID PANEL (03/08/2003 10:21 AM CDT) Cholesterol 247(H) <200 mg/dL [facility] Comment: Cholesterol Reference Range: <200 ??The NCEP recommends further ? evaluation of: ? 1. ??Patients with cholesterol ? greater than 200 mg/dL ? if additional risk factors ? are present. ? 2. ??All patients with a ? cholesterol greater than ? 240 mg/dL. Triglycerides 347(H) <150 mg/dL [facility] HDL Cholesterol 37(L) >40 mg/dL [facility] LDL Cholesterol Calculated 141(H) <130 mg/dL [facility] VLDL-Cholesterol 69(H) 0 - 30 mg/dL [facility] Cholesterol/HDL Ratio 7(H) 0 - 5 [facility] 03/08/2003 10:2 1 AM CDT 03/08/2003 10:26 AM CDT Ashok Lazaro MD [facility] from Last 3 Months or Most Recently Relevant to Health Maintenance Advance Directives For more information, please contact: [phone] Documents on File Type Date Recorded Patient Director Economic Expl anation Advance Directives and Living Will 08/16/2019 12:04 PM Health Care Directiv e 08/16/2019 * Full Code (Latest Code Status on File) Date Activated Date Inactivated Comments 04/09/2023 1:30 PM 04/11/2023 1:19 PM All basic and advanced life-sustaining interventions are performed as appropriate Question Answer Comments Code status determined by: Discussion with sue nt/ legal decision maker Healthcare Agents on File Name Relationship Healthcare Agent Relationship Communication Roger Mckeon Spouse Health Care Agent Betty Horvath Daughter First Alternate Health Care Agent Care Teams Marine Resource Economist Relationship Specialty Start Date End Date Vidhi Horn MD [facility] [address] [place] [address] PCP - General Family Medicine 04/07/23 Raj Coombs MD [facility] [address] [place] [address] 06/19/12
--- OUTSIDE RECORDS SUMMARY | 2023-11-20 14:44 | XMS_ITS | Clinical Summary ---
Author Name Unknown Organization [place] Address [address] [facility] [place] [address] Care Team Providers Care Tap Builder Name Role Phone Raj Coombs MD Unavailable [phone] Vidhi Horn MD Primary Care Provider [phone] Allergies Active Allergy Reactions Criticality Noted Date [...] Administration Dates Next Due Flu, Unspecified 05/03/2019 Family History Medical History Relation Comments Hypertension Brother 1 Heart Disease Brother 2 half brother d as infant, born with congenital tbl hole in heart Diabetes Daughter gestational diab etes Cancer Father leukemia, bone c ancer Cancer Grandchild leukemia, doing great now Breast Cancer Maternal Aunt 1 Cancer Maternal Aunt 2 type unknown Cancer Maternal Grandfather leukemia Diabetes Paternal Grandfather diet contro lled, not on insulijn Diabetes Paternal Grandmother diet contro lled, not on insulin Cancer Paternal Uncle 2 lung cancer Cancer Paternal Uncle 3 Diabetes Sister diet controlled, not on insulin Hypertension Son controlled with medication Relation Status Comments Brother 1 Brother 2 Daughter Father (Age 31) leukemia, bone cancer Grandchild Maternal Aunt 1 Maternal Aunt 2 Maternal Grandfather Paternal Grandfather Paternal Grandmother Paternal Uncle 1 (Age 60) of massi ve [place] Paternal Uncle 2 Paternal Uncle 3 Sister Son Social History Tobacco Use Types Packs/Day Years [...] 04/09/2023 6:13 AM CDT Plan of Treatment Health Maintenance Due Date Last Done Comments ANNUAL REVIEW OF HM ORDERS 1945 TSH W/FREE T4 REFLEX 1945 HEPATITIS C SCREENING 1964 LIPID 03/08/2004 03/08/2003 RSV VACCINE ( & 60+) (1 - 1-dose 60+ series) 2006 FALL RISK ASSESSMENT 12/09/2011 MEDICARE ANNUAL WELLNESS VISIT 12/09/2011 03/08/2003 COVID-19 Vaccine ( season) 2023 05/15/2021, 10/21/2020, 09/30/2020 INFLUENZA VACCINE (#1) 2023 , 05/01/2021, 05/09/2020, Additional history exists PHQ-2 (once per calendar year) 2023 03/27/2021 ADVANCE CARE PLANNING 08/16/2024 08/16/2019 DTAP/TDAP/TD IMMUNIZATION (2 - Td or Tdap) 09/27/2024 09/27/2014, 03/14/2004 GLUCOSE 04/09/2026 04/09/2023, 04/03/2023 DEXA 10/05/2027 10/05/2012 COLONOSCOPY Discontinued 11/08/2009, 10/10/2006 COLORECTAL CANCER SCREENING Discontinued MAMMO SCREENING Discontinued 06/19/2012, 10/11, 10/06/2008, Additional history exists Pneumococcal Vaccine: 65+ Years Completed 05/09/2020, 05/22/2015 ZOSTER IMMUNIZATION Completed 01/24/2021, 11/16/2020, 08/05/2014 CT COLONOGRAPHY Discontinued FIT Discontinued FLEX SIG Discontinued HPV IMMUNIZATION Aged Out No longer e ligible based on patient's age to complete this topic IPV IMMUNIZATION Aged Out No longer e ligible based on patient's age to complete this topic MENINGITIS IMMUNIZATION Aged Out No l onger eligible based on patient's age to complete this topic RSV MONOCLONAL ANTIBODY Aged Out No l onger eligible based on patient's age to complete this topic sDNA (Cologuard) Discontinued Medical Devices Implanted Type Area Senior Etl Developer Device Identifier Shelf Expiration Date Model / Serial / Lot Imp Dago Medt Tsrh Prebent 07.0cm [id number] Implanted:Qty : 2 on 08/16/2019 Metallic Hardware/An chor N/A: Spine Lumbar [employer] [id number] / / NA Imp Scr Medt Tsrh 3dx Og Thin 6.5x40mm Ti [id number] Implanted:Qty : 1 on 08/16/2019 Metallic Hardware/An chor N/A: Spine Lumbar [employer] [id number] / / NA Imp Spacer Medt Elevate X-Rhiannon 28x8mm Expandable Med [id number] Implanted:Qty : 1 on 08/16/2019 Metallic Hardware/An chor N/A: Spine Lumbar [employer] 06/21/2027 [id number] / / [id number] Imp Spacer Medt Elevate X-Rhiannon 28x8mm Expandable Med [id number] Implanted:Qty : 1 on 08/16/2019 Metallic Hardware/An chor N/A: Spine Lumbar [employer] 01/22/2026 [id number] / / [id number] Imp Spi Interbody Medt Catalyft Pl Long 9mm [id number] - [id number] Implanted:Qty : 1 on 04/09/2023 by Lukasz Evans MD at [facility] Metallic Hardware/An chor N/A: Spine Lumbar [employer] 02/27/2031 [id number] / / [id number] Imp Connector Medt Tsrh 3dx Small [id number] Implanted:Qty : 6 on 08/16/2019 Explanted:Qty : 2 on 04/09/2023 by Lukasz Evans MD at [facility] Metallic Hardware/An chor N/A: Spine Lumbar [employer] [id number] / / NA Imp Scr Medt Tsrh 3dx Og Thin 6.5x45mm Ti [id number] Implanted:Qty : 5 on 08/16/2019 Explanted:Qty : 2 on 04/09/2023 by Lukasz Evans MD at [facility] Metallic Hardware/An chor N/A: Spine Lumbar [employer] [id number] / / NA Imp Scr Medt Tsrh 3dx Og Thin 6.5x50mm Ti [id number] - [id number] Implanted:Qty : 2 on 04/09/2023 by Lukasz Evans MD at [facility] Metallic Hardware/An chor N/A: Spine Lumbar [employer]-DANEK [id number] / / Imp Scr Medt Tsrh 3dx Og Thin 6.5x45mm Ti [id number] - [id number] Implanted:Qty : 2 on 04/09/2023 by Lukasz Evans MD at [facility] Metallic Hardware/An chor N/A: Spine Lumbar [employer]ANE[employer] [id number] / / Imp Scr Set Medt Tsrh 3dx Flush Break [id number] - [id number] Implanted:Qty : 4 on 04/09/2023 by Lukasz Evans MD at [facility] Metallic Hardware/An chor N/A: Spine Lumbar [employer] [id number] / / Imp Connector Medt Tsrh 3dx Small [id number] - [id number] Implanted:Qty : 4 on 04/09/2023 by Lukasz Evans MD at [facility] Metallic Hardware/An chor N/A: Spine Lumbar [employer] [id number] / / Dago Precut 4.5cmx5.5mm - [id number] Implanted:Qty : 2 on 04/09/2023 by Lukasz Evans MD at [facility] Metallic Hardware/An chor N/A: Spine Lumbar [employer] [id number] / / Imp Scr Set Medt Tsrh 3dx Flush Break [id number] Implanted:Qty : 6 on 08/16/2019 Explanted:Qty : 2 on 04/09/2023 by Lukasz Evans MD at [facility] Metallic Hardware/An chor N/A: Spine Lumbar [employer] [id number] / / NA Procedures Procedure Name Priority Date/Time Associated Diagnosis Comments GLUCOSE BY METER Routine 04/09/2023 6:52 AM CDT DX BONE DENSITY Routine 10/05/2012 Screening for osteoporosis MA SCREENING DIGITAL BILATERAL Routine 06/19/2012 2:19 PM TREASURY ANALYST COLONOSCOPY Routine 11/08/2009 8:55 AM CDT CL AFF A.M.A. LIPID PANEL Routine 03/08/2003 10:21 AM CDT Mixed Hyperlipidemia from Last 3 Months or Most Recently Relevant to Health Maintenance Results * Glucose by meter (04/09/2023 6:52 AM CDT) GLUCOSE BY METER POCT 84 70 - 99 mg/dL 04/09/2023 7:01 AM CDT [facility] POCT RESULTS Blood, venous BLOOD SPECIMEN / Unknown 04/09/2023 6:52 AM CDT 04/09/2023 7:01 AM CDT Lukasz Evans MD [facility] POCT [facility] POCT RESULTS [address] [place] [address] * DX Hip/Pelvis/Spine (10/05/2012) Anatomical Region Laterality Modality Dexa Other Impressions 10/05/2012 BONE DENSITOMETRY [facility] October 05, 2012 PATIENT: ??Avelina Mckeon CHART: [id number] : ??1945 AGE: ??66 year old SEX: ??female REFERRING PHYSICIAN: ??Raj Coombs M.D. [facility] PROCEDURE: ??Bone density scanning was performed using DEXA technology performed on a 30 Second Showcase Scanner. ??Reporting is completed in the form of a T-score. ??The T-score represents the standard deviation from peak bone mass based on a young healthy adult. Rotary Shear Operator performing scan: ??Elodia Horvath REFERENCE T-SCORES: ? [...] factors. Eileen Fox M.D. Electronically signed Eileen Fox MD IMSanjay DEXA ORDERABLES * Mammo Screening digital (bilat) (06/19/2012 2:19 PM TREASURY ANALYST) Anatomical Region Laterality Modality Breast Bilateral Other 06/19/2012 2:19 PM TREASURY ANALYST Impressions 06/19/2012 3:10 PM TREASURY ANALYST SCREENING MAMMOGRAM, BILATERAL, DIGITAL w/CAD - 06/19/2012 2:19 PM BREAST SYMPTOMS: No current breast complaints. COMPARISON: ??11/07/2009, 06/10/2007 PARENCHYMAL PATTERN: Scattered fibroglandular densities. COMMENTS: No findings of suspicion for malignancy. IMPRESSION: BI-RADS 1, NEGATIVE RECOMMENDATION: Annual screening mammography. Raj Coombs MD IMG MAMMOGRAPHY ORD ERABLES * COLONOSCOPY (11/08/2009 8:55 AM CDT) Pathologist [facility] COLONOSCOPY [facility] Patient Name: Avelina Mckeon ?Gender: F ? Procedure Date: 11/08/2009 8:55 AM ? Date of : 1945 ?Age: 63 ? Admit Type: Outpatient ? Attending MD: Pavan Martinez MD ? Procedure: ? Colonoscopy Indications: ? Personal history of colonic polyps Providers: ? Pavan Martinez MD Referring : ?Mj Alberts MD Medicines: ? Fentanyl 100 [...] oxygen ? saturations were monitored continuously. The [facility] ? #[id number] was introduced through the anus and advanced [...] Return to primary care physician PRN. ? R Michelle Karimi Pavan Martinez MD Signed Date: 11/08/2009 9:52 AM Number of Addenda: 0 I was physically present for the entire viewing portion of the exam. Note initiated on 11/08/2009 8:54 AM RADIOLOGY RESULTS 11/08/2009 8:55 AM CDT Mj Alberts MD PROCEDURES RADIOLOGY RESULTS * (ABNORMAL) A.M.A. LIPID PANEL (03/08/2003 10:21 AM CDT) Cholesterol 247(H) <200 mg/dL [facility] Comment: Cholesterol Reference Range: <200 ??The NCEP recommends further ? evaluation of: ? 1. ??Patients with cholesterol ? greater than 200 mg/dL ? if additional risk factors ? are present. ? 2. ??All patients with a ? cholesterol greater than ? 240 mg/dL. Triglycerides 347(H) <150 mg/dL [facility] HDL Cholesterol 37(L) >40 mg/dL [facility] LDL Cholesterol Calculated 141(H) <130 mg/dL [facility] VLDL-Cholesterol 69(H) 0 - 30 mg/dL [facility] Cholesterol/HDL Ratio 7(H) 0 - 5 [facility] 03/08/2003 10:2 1 AM CDT 03/08/2003 10:26 AM CDT Ashok Lazaro MD LABORATORY [facility] from Last 3 Months or Most Recently Relevant to Health Maintenance Advance Directives For more information, please contact: [phone] Documents on File Type Date Recorded Patient Chucking Machine Set Up Operator Expl anation Advance Directives and Living Will 08/16/2019 12:04 PM Health Care Directiv e 08/16/2019 * Full Code (Latest Code Status on File) Date Activated Date Inactivated Comments 04/09/2023 1:30 PM 04/11/2023 1:19 PM All basic and advanced life-sustaining interventions are performed as appropriate Question Answer Comments Code status determined by: Discussion with irvine nt/ legal decision maker Healthcare Agents on File Name Relationship Healthcare Agent Relationship Communication Roger Mckeon Spouse Health Care Agent Betty Horvath Daughter First Alternate Health Care Agent Care Teams Tap Builder Relationship Specialty Start Date End Date Vidhi Horn MD [facility] [address], [place] [address] PCP - General Family Medicine 04/07/23 Raj Coombs MD [address] [address] 06/19/12
--- OUTSIDE RECORDS SUMMARY | 2023-11-20 14:44 | XMS_ITS | Clinical Summary ---
Author Name Unknown Organization [facility] Address [place], [place] [address] Care Team Providers Care Resource Conservationist Name Role Phone Franci Dean Primary Care Provider [phone] Allergies No known active allergies Medications Medication Sig Dispensed Refills Start Date End Date Status SIMVASTATIN ORAL Take by mouth. Acti ve MULTIVITAMIN/IRON/ FOLIC ACID (MULTI-SAGE ORAL) Take by mouth. Act bertram DOCOSAHEXANOIC ACID/EPA (FISH OIL ORAL) Take by mouth. Active CALCIUM ORAL Take by mouth. Active GLUCOSAM SUL NA/CHONDR CANAS A NA (GLUCOSAMINE & CHONDROIT SUL.NA ORAL) Take by mouth. Active VIT A/VIT C/VIT E/ZINC/COPPER (PRESERVISION AREDS ORAL) Take by mouth 2 times daily. Active HYDROcodone-acetam inophen, 5-500 mg, (VICODIN) Tab tablet Take 1-2 tablets by mouth every 4 hours if needed for Pain. Max acetaminophen dose: 4000mg in 24 hrs. 20 tablet 0 01/08/2012 Active Active Problems Problem Noted Date Diagnosed Date Esotropia 01/08/2012 Social History Tobacco Use Types Packs/Day Years Used Date Smoking Tobacco: Never Alcohol Use Standard Drinks/Week Comments Yes 1.7 (1 standard drink = 0.6 oz p ure alcohol) Sex and Gender Information Value Date Recorded Sex Assigned at Not on file Gender Identity Not on file Sexual Orientation Not on file Obstetrics History Last Filed [...] Health Maintenance Due Date Last Done Comments Tdap 1957 Depression screening for age 12+ 1958 BMI (ht and wt on same day) for age 18+ 1964 Hepatitis C screening for age 18-79 1964 Tetanus booster 1966 Zoster (shingles) series for age 50+ (1 of 2) 12/08/18 97 DEXA/DXA scan for age 65+ 12/09/2011 Pneumococcal series for age 65+ (1 of 1 - PCV) 012 COVID-19 vaccine series ( - 2022-24 season) 3 Influenza for age 65+ 04/11/2024 Advance Directives * Full Code (Latest Code Status on File) Date Activated Date Inactivated Comments 01/08/2012 1:56 PM 01/08/2012 5:45 PM Care Teams Resource Conservationist Relationship Specialty Start Date End Date Franci Dean PCP - General Family Practice 07/16/16
--- OUTSIDE RECORDS SUMMARY | 2023-11-20 14:44 | XMS_ITS | Continuity of Care Document ---
Author Name Unknown Organization [facility] Address [address] [place] [address] Phone Care Team Providers Care Pier Hand Name Role Phone Rehan Evans MD Unavailable Unavailable Allergies, Adverse Reactions, Alerts Substance Reaction Status Criticality No Known Allergies Active No Inform ation Medications Medication Instructions Dosage Effective Dates (start - stop) Status Comments No Drug Therapy Prescribed Procedures Procedure Date Office/Outpatient Visit,[facility] 2014 Advance Directives Directive Yes / No Effective Date File Name No Information Encounters Encounter Description Practice Location Reason(s) For Visit Diagnoses Date Provider Providers Copied on Encounter Office/Outpa tient Visit,New, [facility], [address], [place], [place], [id number] , [place] tel:[phone] [facility] OVERWEIGHTCervical spondylosisSpinal stenosis of cervical region 5 Cristina Van. [facility], [address] [place] [address], [facility] [address], [place], [place], [id number] , [place]. tel:[phone] Referring Provider: Franci Dean [facility] [address] [place], [address]. tel:[phone] Family History Family Member Type Diagnosis Age At Onset No Information Payers Payer name Insurance type Covered republican [place]ichey([place] [id number] Medicare [facility] [id number] Social History Type Description Quantity Date Captured [...] For Referral Reason For Referral No Information History Of Present Illness Encounter Date Complaint History Of Prese nt Illness No Information Functional Status Date Functional Assessmen t No Information Medications Administered Medication Instructions Dosage Effective Dates (start - stop) Status Comments No Drug Therapy Prescribed Instructions Date Instruction Additional Infor yina Weight Management Related to [facility] Assessments Type Assessment Date assessment OVERWEIGHT Patient Care Teams Name Effective Dates (start - stop) Status Members No Information
--- NOTE | 2023-11-20 15:00 | XR_ITS ---
Patient: ANDREW WALTER Facility:?[facility] Patient ID:?[id number] Site Patient ID:?[id number]. Site :?1945 Study:?DEXA-Bone Density -11/20/2023 3:17:13 PM Ordering Physician:STEVEN Final Report: DXA BONE MINERAL DENSITY STUDY Reason for exam: Disorder of bone density and structure, low bone density. Current height (in): 64. Weight (lb): 150. Menopause age: 56. Ethnicity: White. 1. Have you had a previous hip or vertebral fracture? No. 2. Have you had any fractures during your adult life which did not result from significant trauma (e.g., auto accident)? No. 3. Did either of your parents have a hip fracture? No. 4. Do you smoke? No. 5. Have you ever taken Glucocorticoids? No. 6. Do you have rheumatoid arthritis? No. 7. Do you have secondary osteoporosis? No. 8. Do you drink 3 or more alcoholic drinks per day? No. 9. Are you being treated for osteoporosis? No. 10. Have you ever taken any of the following medications: Actonel, Evista, Fosamax, Miacalcin, Reclast, Boniva, Forteo, HRT (i.e., estrogen/hormone therapy), Protelos, Prolia, Vitamin D, Calcium, other ? please specify. ANSWER: Yes, vitamin D and calcium. 11. Do you have any of the following medical conditions: Anorexia or bulimia, asthma or emphysema, end stage renal disease, hyperparathyroidism, any seizure disorders, cancer, inflammatory bowel diseases, hysterectomy, other ? please specify. ANSWER: Yes, skin cancer, fusion L2-L5. 12. What was your maximum height (inches)? 66.5. 13. Do you perform weight bearing exercise regularly? Yes. 14. Do you regularly consume dairy products? Yes. 15. Do you drink caffeinated beverages? Yes. 16. At what age did your period start? 15. 17. Are you premenopausal? No. 18. How many full-term pregnancies have you had? 4. 19. Have you ever missed your period for more than 6 months in a row (not including or menopause)? No. TECHNIQUE: Bone mineral density study was performed using the [employer]. FINDINGS: The results of the study expressed as bone mineral density (BMD) are as follows: Neck Left: BMD: 0.659 g/cm2. T-score: -1.7. Z-score: 0.5 Right: BMD: 0.702 g/cm2. T-score: -1.3. Z-score: 0.8 Total Left: BMD: 0.807 g/cm2. T-score: -1.1. Z-score: 0.8 Right: BMD: 0.868 g/cm2. T-score: -0.6. Z-score: 1.3 Radius Left 33%: BMD: 0.646 g/cm2. T-score: -0.8. Z-score: 2.0 IMPRESSION: Osteopenia. *Comparison exams done prior to 01/2020 were performed on different unit, [employer]. COMPARISON: Compared with scan of 01/24/2021, the bone mineral density has increased by 3.6 percent at the hip and decreased by 1.6 percent at the left forearm. FRAX 10-year Fracture Risk Major Osteoporotic Fracture: 13% Hip Fracture: 3.2% Reported Risk Factors: [place] () Neck BMD=0.659, BMI=25.7 Adi Krishnamurthy M.D. Diagnostic Radiologist [email or web address] VIOLET/savannah D& Transcribed: 1:24 p.mCristopher nuñez/Dictated by: Adi Krishnamurthy MD @ 11/21/2023 10:44:00 AM Signed by:Valerie Krishnamurthy MD @11/21/2023 3:26:11 PM (Electronic Signature)
--- NOTE | 2023-11-20 15:40 | MM_ITS ---
Patient: ANDREW WALTER Facility:?[facility] Patient ID:?[id number] Site Patient ID:?[id number]. Site :?1945 Study:?XRay-Breast Bilateral 3D W/CAD-11/20/2023 3:33:40 PM Ordering Physician:Vidhi Hubbard Final Report: BILATERAL SCREENING MAMMOGRAM WITH COMPUTER-AIDED DETECTION AND TOMOSYNTHESIS TECHNIQUE: CC and MLO views were obtained. These mammographic images have been obtained using full-field digital technique. These mammographic images were interpreted with the benefit of computer-aided detection. Breast Tomosynthesis was used in this interpretation. COMPARISON FILM: 11/08/22, 09/28/21, 08/28/20. FINDINGS: There are scattered areas of fibroglandular density. IMPRESSION: There is no radiographic evidence for malignancy. ASSESSMENT: BI-RADS Category 1: Negative RECOMMENDATION: Routine screening mammogram in 1 year. A lay language report of this examination will be provided to the patient. Adi Krishnamurthy M.D. Diagnostic Radiologist [email or web address] DSM/sp R& Transcribed: 1:47 p.m. SP/Dictated by: Adi Krishnamurthy MD @ 11/21/2023 10:40:00 AM Signed by:?Adi Krishnamurthy MD @11/21/2023 3:26:30 PM (Electronic Signature)
== END 2023-11-20 14:42 | disposition home or self-care (01) ==
LOC: RAD 14:42
PROVIDERS: PCP Emergency Medicine; Visit Provider Emergency Medicine
DX: Z12.31 Encounter for screening mammogram for malignant neoplasm of breast (principal); M85.9 Disorder of bone density and structure, unspecified; M85.89 Other specified disorders of bone density and structure, multiple sites
CPT/HCPCS: 77063; 77067; 77080

== ENCOUNTER 2023-12-09 13:45 | Outpatient (RCR) | payer MEDICARE, SELFPAY | END 2024-01-20 13:47 | disposition home or self-care (01) | PROVIDERS: PCP Emergency Medicine; Visit Provider Emergency Medicine | DX: M53.3 Sacrococcygeal disorders, not elsewhere classified (principal); G89.29 Other chronic pain; M54.50 Low back pain, unspecified; Z74.09 Other reduced mobility; R53.1 Weakness; Z51.89 Encounter for other specified aftercare | CPT/HCPCS: 97032; 97110; 97140; 97161 ==

== ENCOUNTER 2024-07-16 06:07 | Day surgery (SDC) | payer MEDICARE, SELFPAY ==
[2024-07-16] VITALS (7 sets, daily range): BP systolic 152–176; BP diastolic 70–88; PULSE 57–59; RESP 16–18; TEMP 36.5–36.7; O2SAT 95–98; BMI 25.4
--- OUTSIDE RECORDS SUMMARY | 2024-07-16 06:10 | XMS_ITS | Clinical Summary ---
Author Organization [place] Address [address] [facility] [place] [address] Care Team Providers Care Machine Guide Base Winder Name Role Phone Raj Coombs MD Unavailable [phone] Vidhi Horn MD Primary Care Provider [phone] Allergies Active Allergy Reactions Criticality Noted Date Comments No Known Drug Allergy 03/08/2003 Medications levothyroxine (SYNTHROID/LEVOTH ROID) 25 MCG tablet Take 25 mcg by [...] times daily Active acetaminophen (TYLENOL) 325 MG tabletIndications :Spinal stenosis of lumbar region with neurogenic claudication Take 3 tablets (975 mg) by mouth every 8 hours 100 tablet 3 Active gabapentin (NEURONTIN) 100 MG capsuleIndication s:Spinal stenosis of lumbar region with neurogenic claudication Take 1 capsule (100 mg) by mouth At Bedtime 30 capsule 3 Active hydrOXYzine (ATARAX) 10 MG tabletIndications :Spinal stenosis of lumbar region with neurogenic claudication Take 1 tablet (10 mg) by mouth every 6 hours as needed for other (adjuvant pain) 30 tablet 3 Active oxyCODONE (ROXICODONE) 5 MG tabletIndications :Spinal stenosis of lumbar region with neurogenic claudication Take 1 tablet (5 mg) by mouth every 4 hours as needed for moderate pain 32 tablet 3 Active senna-docusate (SENOKOT-S/SARAH LACE) 8.6-50 MG tabletIndications :Spinal stenosis of lumbar region with neurogenic claudication Take 1 tablet by mouth 2 times daily 60 tablet 3 Active Active Problems Problem Noted Date Diagnosed [...] Uncle 1 (Age 60) of [place] Paternal Uncle 2 Paternal Uncle 3 Sister Son Social History Tobacco Use Types Packs/Day Years Used Date Smoking Tobacco: Never Smokeless Tobacco: Never Alcohol Use Standard Drinks/Week Comments Yes 1.7 (1 standard drink = 0.6 oz p ure alcohol) Alcoholic Drinks/day: social Adolescent Education Answer Date Record ed Getting School Help Needed Not on file 05/05 Comments No Sex and Gender Information Value Date Recorded Sex Assigned at Not on file Legal Sex Female 3:23 AM INSTALLER METAL FLOORING Gender Identity Not on file Sexual Orientation Not on file Occupation Industry Job Start Date Job End Date home Not on file Not on file Not on file Last Filed Vital Signs Vital Sign Reading Time Taken Comments Blood Pressure 144/83 04/11/2023 8:18 AM CDT Pulse 60 04/11/2023 8:18 AM CDT Temperature 36.3 C (97.3 F) 04/11/2023 8:18 AM CDT Respiratory Rate 16 04/11/2023 12:3 5 AM [...] HEPATITIS C SCREENING 1963 LIPID 03/08/2004 03/08/2003 FALL RISK ASSESSMENT 12/09/2011 MEDICARE ANNUAL WELLNESS VISIT 12/09/2011 03/08/2003 RSV VACCINE (1 - 1-dose 75+ series) 2021 PHQ-2 (once per calendar year) 2023 03/27/2021 COVID-19 Vaccine ( season) 2024 05/15/2021, 10/21/2020, 09/30/2020 INFLUENZA VACCINE (#1) 2024 , 05/01/2021, 05/09/2020, Additional history exists ADVANCE CARE PLANNING 08/16/2024 08/16/2019 DTAP/TDAP/TD IMMUNIZATION [...] (Cologuard) Discontinued Medical Devices Implanted Type Area Medical Lab Technologist Device Identifier Shelf Expiration Date Model / Serial / Lot Imp Dago Medt Tsrh Prebent 07.0cm [id number] Implanted:Qty : 2 on 08/16/2019 Metallic Hardware/An chor N/A: Spine Lumbar [employer] [id number] / / NA Imp Scr Medt Tsrh 3dx Og Thin 6.5x40mm Ti [id number] Implanted:Qty : 1 on 08/16/2019 Metallic Hardware/An chor N/A: Spine Lumbar [employer] [id number] / / NA Imp Spacer Medt Elevate X-Rhiannon 28x8mm Expandable Med [id number] Implanted:Qty : 1 on 08/16/2019 Metallic Hardware/An chor N/A: Spine Lumbar [employer] 06/21/2027 [id number] / / [id number] Imp Spacer Medt Elevate X-Rhiannon 28x8mm Expandable Med [id number] Implanted:Qty : 1 on 08/16/2019 Metallic Hardware/An chor N/A: Spine Lumbar [employer] 01/22/2026 [id number] / / [id number] Imp Spi Interbody Medt Catalyft Pl Long 9mm [id number] - [id number] Implanted:Qty : 1 on 04/09/2023 by Lukasz Evans MD at [facility] Metallic Hardware/An chor N/A: Spine Lumbar [employer] 02/27/2031 [id number] / / [id number] Imp Connector Medt Tsrh 3dx Small [id number] Implanted:Qty : 6 on 08/16/2019 Explanted:Qty : 2 on 04/09/2023 by Lukasz Evans MD at [facility] Metallic Hardware/An chor N/A: Spine Lumbar [employer] [id number] / / NA Imp Scr Medt Tsrh 3dx Og Thin 6.5x45mm Ti [id number] Implanted:Qty : 5 on 08/16/2019 Explanted:Qty : 2 on 04/09/2023 by Lukasz Evans MD at [facility] Metallic Hardware/An chor N/A: Spine Lumbar [employer] [id number] / / NA Imp Scr Medt Tsrh 3dx Og Thin 6.5x50mm Ti [id number] - [id number] Implanted:Qty : 2 on 04/09/2023 by Lukasz Evans MD at [facility] Metallic Hardware/An chor N/A: Spine Lumbar [employer]-DANEK [id number] / / Imp Scr Medt Tsrh 3dx Og Thin 6.5x45mm Ti [id number] - [id number] Implanted:Qty : 2 on 04/09/2023 by Lukasz Evans MD at [facility] Metallic Hardware/An chor N/A: Spine Lumbar [employer]-DANEK [id number] / / Imp Scr Set Medt Tsrh 3dx Flush Break [id number] - [id number] Implanted:Qty : 4 on 04/09/2023 by Lukasz Evans MD at [facility] Metallic Hardware/An chor N/A: Spine Lumbar [employer] [id number] / / Imp Connector Medt Tsrh 3dx Small [id number] - [id number] Implanted:Qty : 4 on 04/09/2023 by Lukasz Evans MD at [facility] Metallic Hardware/An chor N/A: Spine Lumbar [employer] [id number] / / Dago Precut 4.5cmx5.5mm - [id number] Implanted:Qty : 2 on 04/09/2023 by Lukasz Evans MD at [facility] Metallic Hardware/An chor N/A: Spine Lumbar [employer] [id number] / / Imp Scr Set Medt Tsrh 3dx Flush Break [id number] Implanted:Qty : 6 on 08/16/2019 Explanted:Qty : 2 on 04/09/2023 by Lukasz Evans MD at [facility] Metallic Hardware/An chor N/A: Spine Lumbar [employer] [id number] / / NA Procedures Procedure Name Priority Date/Time Associated Diagnosis Comments GLUCOSE BY METER Routine 04/09/2023 6:52 AM CDT DX BONE DENSITY Routine 10/05/2012 Screening for osteoporosis MA SCREENING DIGITAL BILATERAL Routine 06/19/2012 2:19 PM INSTALLER METAL FLOORING COLONOSCOPY Routine 11/08/2009 8:55 AM CDT CL AFF A.M.A. LIPID PANEL Routine 03/08/2003 10:21 AM CDT Mixed Hyperlipidemia from Last 3 Months or Most Recently Relevant to Health Maintenance Results * Glucose by meter (04/09/2023 6:52 AM CDT) [facility] Signature GLUCOSE BY METER POCT 84 70 - 99 mg/dL 04/09/2023 7:01 AM CDT [facility] POCT RESULTS Blood, venous BLOOD SPECIMEN / Unknown 04/09/2023 6:52 AM CDT 04/09/2023 7:01 AM CDT us Lukasz Evans MD [facility] POCT Final Resu lt [facility] POCT RESULTS [address] [place] [place] [address] * DX Hip/Pelvis/Spine (10/05/2012) Anatomical Region Laterality Modality Dexa Other Impressions 10/05/2012 BONE DENSITOMETRY [facility] October 05, 2012 PATIENT: Avelina Mckeon CHART: [id number] : 1945 AGE: [age] year old SEX: female REFERRING PHYSICIAN: Raj Coombs M.D. [facility] [place] PROCEDURE: Bone density scanning was performed using DEXA technology performed on a [employer] Scanner. Reporting is completed in the form of a T-score. The T-score represents the standard deviation from peak bone mass based on a young healthy adult. Continuous Improvement Coach performing scan: Elodia Horvath REFERENCE T-SCORES: Normal -1.0 and greater Osteopenia Less than -1.0 and greater than -2.5 Osteoporosis -2.5 and less INDICATIONS: Post-menopausal, Family history of osteoporosis, Fracture of ulna age 57 CURRENT TREATMENT: Calcium with Vitamin D FINDINGS: Lumbar Spine L1-L2: T-score 0.4, marked degenerative changes present at L3,4, so only L1,2 are evaluated. Left Femoral Neck: T-score -1.0 Right Femoral Neck: T-score -1.0 IMPRESSION: Normal bone mineral density., Degenerative changes of the lumbar spine which may falsely elevate results. Comparison is made to previous study dated 01/14/00. Comparisons from different scanners that have not been cross calibrated, are not necessarily valid. Such a comparison has been performed here; one should interpret with caution. There has been probably no significant change [...] calculator (www.shef.ac.uk/FRAX or you can google FRAX). This patient's risks based on available information, [...] risk factors. Eileen Fox M.D. Electronically signed us Eileen Fox MD [facility] DEXA ORDERABLES Final Result * Mammo Screening digital (bilat) (06/19/2012 2:19 PM INSTALLER METAL FLOORING) Anatomical Region Laterality Modality Breast Bilateral Other 06/19/2012 2:19 PM INSTALLER METAL FLOORING Impressions 06/19/2012 3:10 PM INSTALLER METAL FLOORING SCREENING MAMMOGRAM, BILATERAL, DIGITAL w/CAD - 06/19/2012 2:19 PM BREAST SYMPTOMS: No current breast complaints. COMPARISON: 11/07/2009, 06/10/2007 PARENCHYMAL PATTERN: Scattered fibroglandular densities. COMMENTS: No findings of suspicion for malignancy. IMPRESSION: BI-RADS 1, NEGATIVE RECOMMENDATION: Annual screening mammography. Raj Coombs MD [facility] MAMMOGRAPHY ORDERABLES Edited * COLONOSCOPY (11/08/2009 8:55 AM CDT) COLONOSCOPY [facility] Patient Name: Avelina Mckeon Gender: F Procedure Date: 11/08/2009 8:55 AM Date of : 1945 Age: 63 Admit Type: Outpatient Attending MD: Pavan Martinez MD Procedure: Colonoscopy Indications: Personal history of colonic polyps Providers: Pavan Martinez MD Referring MD: Mj Alberts MD Medicines: Fentanyl 100 micrograms IV, Midazolam 1.5 mg IV, Atropine 0.6 mg IV Complications: No immediate complications Procedure: - Prior to the procedure, a History and Physical was performed, and patient medication allergies were reviewed. The patient is competent. The risks and benefits of the procedure and the sedation options and risks were discussed with the patient. All questions were answered and informed consent was obtained. Patient identification and proposed procedure were verified by the physician in the procedure room. Mental Status Examination: alert and oriented. Airway Examination: normal oropharyngeal airway and neck mobility. Respiratory Examination: clear to auscultation. CV Examination: normal. ASA Grade Assessment: I - A normal, healthy patient. After reviewing the risks and benefits, the patient was deemed in satisfactory condition to undergo the procedure. The anesthesia plan was to use moderate sedation / analgesia (conscious sedation). Immediately prior to administration of medications, the patient was re-assessed for adequacy to receive sedatives. The heart rate, respiratory rate, oxygen saturations, blood pressure, adequacy of pulmonary ventilation, and response to care were monitored throughout the procedure. The physical status of the patient was re-assessed after the procedure. After obtaining informed consent, the colonoscope was passed under direct vision. Throughout the procedure, the patient's blood pressure, pulse, and oxygen saturations were monitored continuously. The PCF-Q180AL #[id number] was introduced through the anus and advanced to the ileum. The colonoscopy was performed without difficulty. The patient tolerated the procedure well. The quality of the prep was excellent. Findings: The digital rectal exam was normal. A sessile polyp was found in the transverse colon. The polyp was 2 mm in size. This was biopsied with a hot forceps for histology. A sessile polyp was found in the sigmoid colon. The polyp was 2 mm in size. This was biopsied with a hot forceps for histology. The rectum, descending colon, splenic flexure, hepatic flexure, ascending colon, cecum, ileocecal valve and ileum appeared normal. The retroflexed view of the anal verge was normal and showed no anal or rectal abnormalities. The terminal ileum appeared normal. Impression: - A 2 mm polyp in the transverse colon. Tissue was removed. - A 2 mm polyp in the sigmoid colon. Tissue was removed. - The rectum, descending colon, splenic flexure, hepatic flexure, ascending colon, cecum, ileocecal valve and terminal ileum are normal. - The terminal ileum is normal. Recommendation: - Discharge patient to home (ambulatory). - Patient should telephone endoscopist in 1 week. - If polyp is adenomatous repeat colonoscopy in 3 years. If polyp is hyperplastic repeat colonoscopy in 4 years. - Return to primary care physician PRN. Vicki Martinez M.D Pavan Martinez MD Signed Date: 11/08/2009 9:52 AM Number of Addenda: 0 I was physically present for the entire viewing portion of the exam. Note initiated on 11/08/2009 8:54 AM RADIOLOGY RESULTS 11/08/2009 8:55 AM CDT us Mj Alberts MD PROCEDURES Final Resu lt RADIOLOGY RESULTS * (ABNORMAL) A.M.A. LIPID PANEL (03/08/2003 10:21 AM CDT) Cholesterol 247(H) <200 mg/dL [facility] Comment: Cholesterol Reference Range: <200 The NCEP recommends further evaluation of: 1. Patients with cholesterol greater than 200 mg/dL if additional risk factors are present. 2. All patients with a cholesterol greater than 240 mg/dL. Triglycerides 347(H) <150 mg/dL [facility] HDL Cholesterol 37(L) >40 mg/dL [facility] LDL Cholesterol Calculated 141(H) <130 mg/dL [facility] VLDL-Cholesterol 69(H) 0 - 30 mg/dL [facility] Cholesterol/HDL Ratio 7(H) 0 - 5 [facility] 03/08/2003 10:2 1 AM CDT 03/08/2003 10:26 AM CDT us Ashok Lazaro MD LABORATORY Final Result [facility] [address] [place] [address] from Last 3 Months or Most Recently Relevant to Health Maintenance Insurance [facility] MEDICARE ADVANTAGE Advance Directives For more information, please contact: [phone] Documents on File Type Date Recorded Patient Relay Tester Expl anation Advance Directives and Living Will 08/16/2019 12:04 PM Health Care Directiv e 08/16/2019 * Full Code (Latest Code Status on File) Date Activated Date Inactivated Comments 04/09/2023 1:30 PM 04/11/2023 1:19 PM All basic and advanced life-sustaining interventions are performed as appropriate Question Answer Comments Code status determined by: Discussion with sue staples/ legal decision maker Healthcare Agents on File Name Relationship Healthcare Agent Relationship Communication Roger Mckeon Spouse Health Care Agent Betty Horvath Daughter First Alternate Health Care Agent Care Teams Machine Guide Base Winder Relationship Specialty Start Date End Date Vidhi Horn MD [facility] [address] [place] [address] PCP - General Family Medicine 04/07/23 Raj Coombs MD [address] [address] 06/19/12
--- OUTSIDE RECORDS SUMMARY | 2024-07-16 06:10 | XMS_ITS | Referral Summary ---
Author Organization [place] Address [address] [facility] [place] [address] Care Team Providers Care Staffing Account Manager Name Role Phone Raj Coombs MD Unavailable [phone] Vidhi Horn MD Primary Care Provider [phone] Allergies Active Allergy Reactions Criticality Noted Date [...] on file Legal Sex Female 3:23 AM PANEL CUTTER Gender Identity Not on file Sexual Orientation [...] on file Medical Devices Implanted Type Area Jewel Blocker And Sawyer Device Identifier Shelf Expiration Date Model / Serial / Lot Imp Dago Medt Tsrh Prebent 07.0cm [id number] Implanted:Qty : 2 on 08/16/2019 Metallic Hardware/An chor N/A: Spine Lumbar [employer] [id number] / / NA Imp Scr Medt Tsrh 3dx Og Thin 6.5x40mm Ti [id number] Implanted:Qty : 1 on 08/16/2019 Metallic Hardware/An chor N/A: Spine Lumbar [employer] [id number] / / NA Imp Spacer Medt Elevate X-Rhiannon 28x8mm Expandable Med [id number] Implanted:Qty : 1 on 08/16/2019 Metallic Hardware/An chor N/A: Spine Lumbar [employer] 06/21/2027 [id number] / / [id number] Imp Spacer Medt Elevate X-Rhiannon 28x8mm Expandable Med [id number] Implanted:Qty : 1 on 08/16/2019 Metallic Hardware/An chor N/A: Spine Lumbar [employer] 01/22/2026 [id number] / / [id number] Imp Spi Interbody Medt Catalyft Pl Long 9mm [id number] - [id number] Implanted:Qty : 1 on 04/09/2023 by Lukasz Evans MD at [facility] Metallic Hardware/An chor N/A: Spine Lumbar [employer] 02/27/2031 [id number] / / [id number] Imp Connector Medt Tsrh 3dx Small [id number] Implanted:Qty : 6 on 08/16/2019 Explanted:Qty : 2 on 04/09/2023 by Lukasz Evans MD at [facility] Metallic Hardware/An chor N/A: Spine Lumbar [employer] [id number] / / NA Imp Scr Medt Tsrh 3dx Og Thin 6.5x45mm Ti [id number] Implanted:Qty : 5 on 08/16/2019 Explanted:Qty : 2 on 04/09/2023 by Lukasz Evans MD at [facility] Metallic Hardware/An chor N/A: Spine Lumbar [employer] [id number] / / NA Imp Scr Medt Tsrh 3dx Og Thin 6.5x50mm Ti [id number] - [id number] Implanted:Qty : 2 on 04/09/2023 by Lukasz Evans MD at [facility] Metallic Hardware/An chor N/A: Spine Lumbar [employer]-DANEK [id number] / / Imp Scr Medt Tsrh 3dx Og Thin 6.5x45mm Ti [id number] - [id number] Implanted:Qty : 2 on 04/09/2023 by Lukasz Evans MD at [facility] Metallic Hardware/An chor N/A: Spine Lumbar [employer]-DANEK [id number] / / Imp Scr Set Medt Tsrh 3dx Flush Break [id number] - [id number] Implanted:Qty : 4 on 04/09/2023 by Lukasz Evans MD at [facility] Metallic Hardware/An chor N/A: Spine Lumbar [employer] [id number] / / Imp Connector Medt Tsrh 3dx Small [id number] - [id number] Implanted:Qty : 4 on 04/09/2023 by Lukasz Evans MD at [facility] Metallic Hardware/An chor N/A: Spine Lumbar [employer] [id number] / / Dago Precut 4.5cmx5.5mm - [id number] Implanted:Qty : 2 on 04/09/2023 by Lukasz Evans MD at [facility] Metallic Hardware/An chor N/A: Spine Lumbar [employer] [id number] / / Imp Scr Set Medt Tsrh 3dx Flush Break [id number] Implanted:Qty : 6 on 08/16/2019 Explanted:Qty : 2 on 04/09/2023 by Lukasz Evans MD at [facility] Metallic Hardware/An chor N/A: Spine Lumbar [employer] [id number] / / NA Procedures Procedure Name Priority Date/Time Associated Diagnosis Comments GLUCOSE BY METER Routine 04/09/2023 6:52 AM CDT DX BONE DENSITY Routine 10/05/2012 Screening for osteoporosis MA SCREENING DIGITAL BILATERAL Routine 06/19/2012 2:19 PM PANEL CUTTER COLONOSCOPY Routine 11/08/2009 8:55 AM CDT CL AFF A.M.A. LIPID PANEL Routine 03/08/2003 10:21 AM CDT Mixed Hyperlipidemia from Last 3 Months or Most Recently Relevant to Health Maintenance Results * Glucose by meter (04/09/2023 6:52 AM CDT) [facility] GLUCOSE BY METER POCT 84 70 - 99 mg/dL 04/09/2023 7:[address] [facility] POCT RESULTS Blood, venous BLOOD SPECIMEN / Unknown 04/09/2023 6:52 AM CDT 04/09/2023 7:01 AM CDT us Lukasz Evans MD [facility] POCT Final Resu lt [facility] POCT RESULTS [address] [place] [address] * DX Hip/Pelvis/Spine (10/05/2012) Anatomical Region Laterality Modality Dexa Other Impressions 10/05/[address] [facility] October 05, 2012 PATIENT: Avelina Mckeon CHART: [id number] : 1945 AGE: [age] year old SEX: female REFERRING PHYSICIAN: Raj Coombs M.D. [facility] PROCEDURE: Bone density scanning was performed using DEXA technology performed on a [employer] Scanner. Reporting is completed in the form of a T-score. The T-score represents the standard deviation from peak bone mass based on a young healthy adult. Heavy Equipment Field Mechanic performing scan: Elodia Horavth REFERENCE T-SCORES: Normal -1.0 and greater Osteopenia [...] M.D. Electronically signed us Eileen Fox MD IMG DEXA ORDERABLES Final Result * Mammo Screening digital (bilat) (06/19/2012 2:19 PM PANEL CUTTER) Anatomical Region Laterality Modality Breast Bilateral Other 06/19/2012 2:19 PM PANEL CUTTER Impressions 06/19/2012 3:10 PM PANEL CUTTER SCREENING MAMMOGRAM, BILATERAL, DIGITAL w/CAD - 06/19/2012 2:19 PM BREAST SYMPTOMS: No current breast complaints. COMPARISON: 11/07/2009, 06/10/2007 PARENCHYMAL PATTERN: Scattered fibroglandular densities. COMMENTS: No findings of suspicion for malignancy. IMPRESSION: BI-RADS 1, NEGATIVE RECOMMENDATION: Annual screening mammography. Raj Coombs MD IM MAMMOGRAPHY ORDERABLES Edited * COLONOSCOPY (11/08/2009 8:55 AM CDT) COLONOSCOPY [facility] Patient Name: Avelina Mckoen Gender: F Procedure Date: 11/08/2009 8:55 AM [...] oxygen saturations were monitored continuously. The PCF-Q180AL #[id number] was introduced through the anus and advanced [...] 10:21 AM CDT) Cholesterol 247(H) <200 mg/dL [facility] Comment: Cholesterol Reference Range: <200 The NCEP recommends further evaluation of: 1. Patients with cholesterol greater than 200 mg/dL if additional risk factors are present. 2. All patients with a cholesterol greater than 240 mg/dL. Triglycerides 347(H) <150 mg/dL [facility] HDL Cholesterol 37(L) >40 mg/dL [facility] LDL Cholesterol Calculated 141(H) <130 mg/dL [facility] VLDL-Cholesterol 69(H) 0 - 30 mg/dL [facility] Cholesterol/HDL Ratio 7(H) 0 - [address] [facility] 03/08/2003 10:2 1 AM CDT 03/08/2003 10:26 AM CDT us Ashok Lazaro MD LABORATORY Final Result Performing Organization Address [facility]/ZIP Co de Phone Number [facility] [address] [place] [address] from Last 3 Months or Most Recently Relevant to Health Maintenance Insurance [facility] MEDICARE ADVANTAGE Advance Directives For more information, please contact: [phone] Documents on File Type Date Recorded Patient Cutter Grinder Operator Expl anation Advance Directives and Living Will 08/16/2019 12:04 PM Health Care Directiv e 08/16/2019 * Full Code (Latest Code Status on File) Date Activated Date Inactivated Comments 04/09/2023 1:30 PM 04/11/2023 1:19 PM All basic and advanced life-sustaining interventions are performed as appropriate Question Answer Comments Code status determined by: Discussion with patie nt/ legal decision maker Healthcare Agents on File Name Relationship Healthcare Agent Relationship Communication Roger Mckeon Spouse Health Care Agent Betty Horvath Daughter First Alternate Health Care Agent Care Teams Staffing Account Manager Relationship Specialty Start Date End Date Vidhi Horn MD [facility] [address] [place] [address] PCP - General Family Medicine 04/07/23 Raj Coombs MD [address] [address] 06/19/12
--- OUTSIDE RECORDS SUMMARY | 2024-07-16 06:11 | XMS_ITS | Clinical Summary ---
Author Organization [facility] Address [place], [place] [address] Care Team Providers Care Internal Corrosion Specialist Name Role Phone Franci Dean Primary Care Provider [phone] Allergies No known active allergies Medications Medication [...] 47 01/08/2012 3:26 PM CDT Temperature 36.7 C (98 F) 01/08/2012 3:00 PM CDT Respiratory Rate 16 [...] 65+ (1 of 1 - PCV) 012 RSV vaccine for adults or pr egnancy (1 - 1-dose 75+ series) 2021 COVID-19 vaccine series (2023- season) 4 Influenza for age 65+ 04/11/2024 Advance Directives * Full Code (Latest Code Status on File) Date Activated Date Inactivated Comments 01/08/2012 1:56 PM 01/08/2012 5:45 PM Care Teams Internal Corrosion Specialist Relationship Specialty Start Date End Date Franci Dean PCP - General Family Practice 07/16/16
[2024-07-16] MEDS: BUPIVACAINE 0.5% 30 ML INJECTION (07:00)
[2024-07-16] MEDS: ETHYL CHLORIDE 1 APPLICATION 1 APPLIC TOPICAL (07:00)
[2024-07-16] MEDS: LIDOCAINE 1%-EPI 1:100,000 20 ML INFILTRATI (07:00)
--- NOTE | 2024-07-16 07:33 | P.ORPRC_ITS ---
Procedure Note Date of procedure: 07/16/24 Procedure: PREOPERATIVE DIAGNOSIS: 1. Right long and ring finger flexor tenosynovitis - trigger finger POSTOPERATIVE DIAGNOSIS: 1. Right long and ring finger flexor tenosynovitis - trigger finger PROCEDURE: 1. Right long and ring finger flexor tendon sheath open release (A1 lauren) SURGEON: Gautam Beltrán MD. RESPIRATORY CARE TECHNICIAN: KATHARINA Jones ANESTHESIA: Local anesthetic 10 mL total divided between 2 digits via 50:50 mixture of 1% Lidocaine with epi and 0.5% marcaine plain EBL: 2mL IMPLANTS: None TOURNIQUET: None COMPLICATIONS: None evident INDICATIONS: The patient is a pleasant 78-year-old female who has experienced right long and ring finger catching/triggering for number of months. It has progressively gotten worse. Cortisone injection was given for the affected digit(s) in the past with relief of pain and catching, but it was transient. Given the failure of nonoperative management, and how this affects daily life, surgery was recommended. DESCRIPTION OF PROCEDURE: Following a thorough discussion of risks, benefits, and alternatives consent was obtained and the operative digit(s) was marked. The patient was brought to the operating room and placed supine on the operating table. Local anesthesia induction was undertaken in preop holding. No antibiotics were administered as this was planned to be a local case only. Proper time-out was performed identifying proper patient, site, and procedure. The operative extremity was prepped and draped in the appropriate sterile fashion using ChloraPrep. An incision was made on the palmar surface of the hand overlying the MCP joint region of the appropriate digit(s) respecting the palmar creases being cautious not to cross these perpendicularly. For each respective digit, sharp incision through the skin, and blunt dissection through subcutaneous tissue allowing protection of crossing neurologic structures. The A1 lauren was visualized directly. It was incised sharply with a 15 blade. It was released completely from its distal to proximal extent under direct visualization. The tendon was inspected and found to be relatively healthy appearing for the long finger, but the ring fingers flexor tendon was moderately thickened with mild partial tearing. Otherwise, it was intact. The tendon was removed out of the wound, and further inspected. The patient was asked to manually flex and extend the digits and showed no further catching. The catching, which was visualized initially, was no longer evident with reproduction of a manual fist and relaxation. Closure was performed with 4-O nylon in interrupted fashion. Soft dressings were applied, and the patient was transferred to the recovery room in stable condition. PLAN: 1. Encourage elevation of the operative extremity. 2. Range of motion of the fingers and hand/wrist as tolerated. 3. Ibuprofen/acetaminophen and/or oxycodone as needed for pain control. 4. Follow up with PA visit in 12-16 days for wound check and suture removal.
[2024-07-16] MEDS: BACITRACIN OINTMENT BULK TUBE 1 APPLIC TOPICAL (07:35)
--- NOTE | 2024-07-16 07:54 | SUR.PREOP ---
SAME DAY SURGERY LOCAL INJECTION SITE VERIFICATION WAS PERFORMED BY SURGEON/PA AND PATIENT PRIOR TO LOCAL ANESTHETIC BEING INJECTED TO OPERATIVE SITE.
== END 2024-07-16 07:52 | disposition home or self-care (01) ==
LOC: OR 06:08
PROVIDERS: PCP Emergency Medicine; Visit Provider Orthopaedic Surgery Sports Medicine
PROC: (CPT 26055; principal; 2024-07-16 07:15)
DX: M65.341 Trigger finger, right ring finger (principal); M65.331 Trigger finger, right middle finger; M65.841 Other synovitis and tenosynovitis, right hand
CPT/HCPCS: 26055 ×2; J0665

== ENCOUNTER 2024-11-09 08:03 | Outpatient (CLI) | payer MEDICARE, SELFPAY | END 2024-11-09 08:04 | disposition home or self-care (01) | LOC: NFLDREF 11-10 05:45 | PROVIDERS: PCP Emergency Medicine; Referring Provider Emergency Medicine; Visit Provider Emergency Medicine | DX: E03.9 Hypothyroidism, unspecified (principal); I10 Essential (primary) hypertension; E55.9 Vitamin D deficiency, unspecified; E78.5 Hyperlipidemia, unspecified | CPT/HCPCS: 80053; 80061; 82306; 84443 ==

== ENCOUNTER 2025-01-21 13:07 | Outpatient (CLI) | payer MEDICARE, SELFPAY ==
--- NOTE | 2025-01-21 13:20 | CRLHL7_ITS ---
For Patients: As a result of the Century Cures Act, medical imaging exams and procedure reports are released immediately into your electronic medical record. You may view this report before your referring provider. If you have questions, please contact your health care provider. INDICATION: BILATERAL SCREENING MAMMOGRAM, ASYMPTOMATIC 79 Y/O FEMALE COMPARISON: 11/20/2023, 11/08/2022, 09/28/2021 TECHNIQUE: Digital mammogram in CC and MLO projections including computer-aided detection (CAD) and tomosynthesis. BREAST COMPOSITION: The breasts are almost entirely fatty. FINDINGS: No suspicious findings. ASSESSMENT: BI-RADS 2 Benign RECOMMENDATION: Annual screening mammogram. A lay language report of this examination will be provided to the patient. Dictated by: Adi Krishnamurthy MD @ 01/24/2025 09:26:46 (Electronically Signed)
== END 2025-01-21 13:08 | disposition home or self-care (01) ==
LOC: MAMMO 13:07
PROVIDERS: PCP Emergency Medicine; Visit Provider Emergency Medicine
DX: Z12.31 Encounter for screening mammogram for malignant neoplasm of breast (principal)
CPT/HCPCS: 77063; 77067

== ENCOUNTER 2025-03-16 13:45 | Outpatient (RCR) | payer MEDICARE, SELFPAY ==
--- NOTE | 2024-12-22 17:27 | PT.OPE ---
PT [facility] PT [facility] Start: 12/21/24 16:23 Freq: Status: Active Protocol: Document 12/22/24 15:45 LSL (Rec: 12/22/24 17:21 LSL [id number]) E-signed By Emelyn Howell PT Physical Therapy Outpatient Evaluation Insurance Information Recert Due Date 03/22/25 Insurance Name Medicare B,[employer] Insurance Information/Comments Medicare Advantage Medical Diagnosis L shoulder impingement/pain M25.512 L hip abductor tendonitis M76. 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 reports she's been having L shoulder pain for 3 months or so and it is getting progressively worse. She has some aching in the L anterior shoulder that is intermittently sharp with certain motions pulling open a door, pushing out of a chair, lowering from reaching overhead and a rowing motion. I try and avoid doing some of the aggravating things but sometimes I just do them automatically without thinking . Laying on L shoulder wakes her up. She also has had left hip pain for the same amount of time. I began noticing some discomfort and a little sharp pain with hip abduction and clamshell, prolonged standing and it would radiate down the outside of my leg and sometimes the inside of my leg . Small osteophytes in the L hip. It is difficult for her to be able to put socks, shoes and underwear on. R RCR 2020. Pt. is R hand dominant. Pain Comments shoulder 6/10 worst, 1-2/10 best hip 7/10 worst, 2-3/10 best Date of Last Physician Visit 12/02/24 Current Work Status Retired Precautions Treatment Precautions/Contraindications past multilevel spinal fusion Weight Bearing Status Full Weight Bearing Therapy Limitations/Systems Review Other Medical Problem Objective Range of Motion Shoulder AROM L R flexion 147 152 abd 159 143 IR (HBB) T2 T4 ER 78 80 Hip abduction 35 40 flexion 115 122 extension 16 12 IR 35 37 ER 20 19 PROM L hip abduction WNL with pain in posterolateral hip, B hip IR symmetrical with pain on the L, B hip ER tighter and tender on L; shoulder WNL with pain end range flexion Strength L Hip 5/5 with pain on ER and abduction, R hip extension 5-/ 5 L shoulder 5/5 with pain on ER Palpation L glut med, glut med tendon, mid piriformis and piriformis tendon all tender to palpation Balance & Gait SLB L 8 sec, R 5 sec Other/Pertinent Objective Joint Play - B hip posterior glide limited but symmetrical, R is painful Assessment Assessment/Impression Pt. is a 79 y/o female who presents with two distinct diagnoses of L shoulder pain/ impingement and L hip pain due to L hip abductor tendinitis. She has no strength deficits in her shoulder or hip, but does have pain with contraction and some mild loss of range in addition to painful range, but her range remains functional. I am concerned for potential degenerative labral pathology in her shoulder. She is very active at baseline and does not want this to start interfering with her ability to remain active. Treatment will consist of modifying her current HEP and adapting to more isometric strengthening to allow her symptoms to calm down, along with manual therapy decrease tissue tension and then progress into more isotonic therex to include eccentric strengthening. Modalities may be used for pain management and to increase blood flow. Primary Functional Limitations dressing, grooming, completing HEP, pushing, pulling, reaching Plan of Care Rehabilitation Potential Excellent Physical Therapy Goals SHORT TERM GOALS: (3 weeks) 1. Pt. reporting decreased pain with ADLs of dressing and grooming to less than 3/10. 2. Pt. able to begin isotonic hip and shoulder exercises. SENIOR LIVING GOALS: (4+ weeks) 1. Pt. able to reach overhead with pain less than 2/10. 2. Pt. able to get out of car with her L leg with pain less than 2/10. 3. Pt. able to resume her regular HEP with 2 pound UE weights. 4. Pt. able to open and close doors with her left arm with pain less than 2/10. Coordination/Communication With Referral Source Treatment Plan/Direct Interventions Joint Mobilization,Manual Therapy,Neuromuscular Re-ed, Therapeutic Exercises Frequency/Duration 1x/week 6 weeks Patient Will Be Discharged From Therapy Skills Plateau,Independent w/ HEP,Independently Progressing Evaluation Billing Untimed Code Treatment Minutes 45 Complexity Moderate Certification Information Initial Certification Date 12/22/24 Ending Certification Date 03/22/25 Provider Signature Required Yes Provider Signature Shows Agreement With POC & Medical Necessity Physician NPI Number Write NPI# Here Physician Comment/Change : Physician Signature & Date Requested Please Sign/Date Here
== END 2025-04-19 15:09 | disposition home or self-care (01) ==
PROVIDERS: PCP Emergency Medicine; Visit Provider Emergency Medicine
DX: M25.512 Pain in left shoulder (principal); M76.892 Other specified enthesopathies of left lower limb, excluding foot; Z51.89 Encounter for other specified aftercare
CPT/HCPCS: 97032; 97110; 97140; 97162